=== PATIENT | female | born 1990 | race Caucasian/White ===

== ENCOUNTER 2016-08-07 07:11 | Day surgery (SDC) | payer BC ==
[~2016-08-07 07:11] MED LIST: Lactated Ringers 1,000 ML IV SCH; Sodium Chloride 0.9% 10 ML Syringe FLUSH PRN; Sodium Chloride 0.9% 2.5 ML Syringe FLUSH PRN
--- NOTE | 2016-08-07 07:50 | PCM.PREANE ---
Preanesthetic Assessment - Anesthesia/Transfusion/Family Hx Anesthesia History: Prior Anesthesia Without Reaction Family History of Anesthesia Reaction: No Transfusion History: No Prior Transfusion(s) Intubation History: Unknown - Review of Systems General: No Symptoms Pulmonary: No Symptoms Cardiovascular: Other (hypertension on medication) Gastrointestinal: Other (GERD) Neurological: No Symptoms (past hx concussion and facial trauma; nothing recent) , Other (bilateral carpal tunnel pain) Other: Reports: Sinus Problem - Physical Assessment O2 Sat by Pulse Oximetry: 98 Respiratory Rate: 16 Vital Signs: Last Vital Signs Temp 97.4 F 08/07/16 07:29 Pulse 74 08/07/16 07:29 Resp 16 08/07/16 07:29 BP 132/80 08/07/16 07:29 Pulse Ox 98 08/07/16 07:29 Height: 5 ft 3 in Weight: 193 lb ASA Class: 2 Mental Status: Alert & Oriented x3 Airway Class: Mallampati = 1 Dentition: Reports: Normal Dentition Thyro-Mental Finger Breadths: 3 Mouth Opening Finger Breadths: 3 ROM/Head Extension: Full Lungs: Clear to auscultation, Normal respiratory effort Cardiovascular: Regular Rate, Regular Rhythm - Lab Values: Laboratory Last Values Urine HCG, Qual NEGATIVE (NEGATIVE) 08/07/16 07:30 - Allergies Allergies/Adverse Reactions: Allergies Allergy/AdvReac Type Severity Reaction Status Date / Time No Known Allergies Allergy Verified 08/02/16 14:48 - Blood Blood Available: No Product(s) Available: None - Anesthesia Plan Pre-Op Medication Ordered: None - Acknowledgements Anesthesia Type Planned: General Anesthesia (OET) Pt an Appropriate Candidate for the Planned Anesthesia: Yes Alternatives and Risks of Anesthesia Discussed w Pt/Guardian: Yes Pt/Guardian Understands and Agrees with Anesthesia Plan: Yes Additional Comments: Carpal tunnel repair will be done first by Dr. Adam, then nasal surgery. PreAnesthesia Questionnaire - Past Health History Medical/Surgical History: Denies Medical/Surgical History HEENT History: Reports: Allergic rhinitis Other HEENT History: wears glasses/contacts..... hx of fx nose Cardiovascular History: Reports: Hypertension Respiratory History: Reports: None Gastrointestinal History: Reports: GERD Genitourinary History: Reports: None DIRECTOR OF MECHANICAL ENGINEERING History: Reports: None Musculoskeletal History: Reports: Arthritis, Fracture Other Musculoskeletal History: hx of non-union fx of scaphoid bone, hx of fx right foot,hx of fx left hand, hx of fx nose Neurological History: Reports: Concussion, Other (see below) Other Neuro History: hx of motion sickness Psychiatric History: Reports: None Endocrine/Metabolic History: Reports: Obesity/BMI 30+ Hematologic History: Reports: None Immunologic History: Reports: None Oncologic (Cancer) History: Reports: None Dermatologic History: Reports: None - Past Surgical History Head Surgeries/Procedures: Reports: None HEENT Surgical History: Reports: Oral surgery, Tonsillectomy Cardiovascular Surgical History: Reports: None Respiratory Surgical History: Reports: None GI Surgical History: Reports: None Female Surgical History: Reports: Cervical cryotherapy, D&C Endocrine Surgical History: Reports: None Neurological Surgical History: Reports: None Musculoskeletal Surgical History: Reports: None Dermatological Surgical History: Reports: None - SUBSTANCE USE Smoking Status *Q: Former Smoker Tobacco Use Within Last Twelve Months: Cigarettes Second Hand Smoke Exposure: Yes Days Per Week of Alcohol Use: 2 Number of Drinks Per Day: 6 Total Drinks Per Week: 12 Recreational Drug Use History: No - HOME MEDS Home Medications: Home Meds Hydrochlorothiazide 12.5 mg PO ASDIRECTED 08/02/16 [History] Loratadine [Claritin] 10 mg PO BEDTIME 08/02/16 [History] Montelukast Sodium 10 mg PO DAILY 08/02/16 [History] Norgestimate-Ethinyl Estradiol [Ortho Tri-Cyclen 28 Tablet] 1 tab PO DAILY 08/02 [History] Omeprazole 40 mg PO DAILY 08/02/16 [History] - CURRENT (IN HOUSE) MEDS Current Meds: Current Medications Lactated Ringer's (Ringers, Lactated) 1,000 mls @ 125 mls/hr IV ASDIRECTED [facility] Last Admin: 08/07/16 07:30 Dose: 125 mls/hr Cefazolin Sodium/Dextrose 2 gm (/ Premix) 50 mls @ 100 mls/hr IV ONETIME ONE Stop: 08/07/16 08:29 Sodium Chloride (Saline Flush) 10 ml FLUSH ASDIRECTED PRN PRN Reason: Keep Vein Open Sodium Chloride (Saline Flush) 2.5 ml FLUSH ASDIRECTED PRN PRN Reason: Keep Vein Open Preanesthetic Assessment - ANESTHESIA/TRANSFUSION/FAMILY HX Family History of Anesthesia Reaction: No - PHYSICAL ASSESSMENT O2 Sat by Pulse Oximetry: 98 RR: 16 Vital Signs: Last Vital Signs Temp 97.4 F 08/07/16 07:29 Pulse 74 08/07/16 07:29 Resp 16 08/07/16 07:29 BP 132/80 08/07/16 07:29 Pulse Ox 98 08/07/16 07:29 Height: 5 ft 3 in Weight: 193 lb - LAB Values: Laboratory Last Values Urine HCG, Qual NEGATIVE (NEGATIVE) 08/07/16 07:30 - ALLERGIES Allergies/Adverse Reactions: Allergies Allergy/AdvReac Type Severity Reaction Status Date / Time No Known Allergies Allergy Verified 08/02/16 14:48
[2016-08-07] MEDS ORDERED: Bupivacaine 0.25% 10 ML SDV ONE (07:52)
[2016-08-07] MEDS ORDERED: Aloe Vera/Sodium Chloride Gel 14.1 GM Tube ONE (07:52)
[2016-08-07] MEDS ORDERED: Ondansetron 4 MG/2 ML SDV ONE (07:53)
[2016-08-07] MEDS ORDERED: Lidocaine 2% 5 ML SDV ONE ×2 (07:53)
[2016-08-07] MEDS ORDERED: Lidocaine 1% 20 ML MDV ONE (07:53)
[2016-08-07] MEDS ORDERED: Midazolam 1 MG/ML 2 ML SDV ONE (07:53)
[2016-08-07] MEDS ORDERED: Propofol 200 MG/20 ML SDV ONE ×3 (07:53→10:31)
[2016-08-07] MEDS ORDERED: Dexamethasone 4 MG/ML 5 ML MDV ONE (07:53)
[2016-08-07] MEDS ORDERED: EPINEPHrine 1:1000 1 MG/ML SDV ONE (07:53)
[2016-08-07] MEDS ORDERED: Rocuronium 10 MG/ML 10 ML Syringe ONE (07:53)
[2016-08-07] MEDS ORDERED: fentaNYL 250 MCG/5 ML SDV ONE (07:53)
[2016-08-07] MEDS ORDERED: Lidocaine 2% with EPINEPHrine 1:100,000 20 ML MDV ONE (07:54)
[2016-08-07] MEDS ORDERED: Thrombin (Bovine) 5,000 Unit Kit ONE (07:54)
[2016-08-07] MEDS ORDERED: Oxymetazoline 0.05% Nasal Spray 15 ML Bottle ONE (07:55)
[2016-08-07] MEDS ORDERED: ceFAZolin 2 GM in Premix Bag 1 BAG IV ONE (08:00)
[2016-08-07] MEDS ORDERED: Remifentanil 1 MG Vial ONE (08:06)
--- NOTE | 2016-08-07 08:42 | PCM.HPR ---
H & P Addendum review - H & P Addendum Review Date of Original H & P: 07/26/16 Date Reviewed: 08/07/16 Time Reviewed: 08:30 Patient was examined: No Changes
[2016-08-07] MEDS ORDERED: Succinylcholine/Normal Saline 200 MG/10 ML Syringe ONE (08:54)
--- NOTE | 2016-08-07 09:25 | PCM.OPNOTE ---
- General Post-Op/Procedure Note Date of Surgery/Procedure: 08/07/16 Operative Procedure(s): L CTR Post-Op Diagnosis: L CTS Anesthesia Technique: General ET tube Primary Surgeon: Analilia Adam Seafood Specialist: Vera Garland EBL in mLs: 5 Condition: Good Free Text/Narrative:: tt=5 min #[id number] At completion of case, patient was left intubated and care was turned over to Dr. Coulter for completion of her portion of the surgery.
[2016-08-07] MEDS ORDERED: Mineral Oil/Petrolatum Ophth Oint 3.5 GM Tube ONE (09:46)
[2016-08-07] MEDS ORDERED: Promethazine 12.5 MG Supp RECTAL PRN (12:48)
[2016-08-07] MEDS ORDERED: fentaNYL 100 MCG/2 ML SDV IVPUSH PRN (12:48)
[2016-08-07] MEDS ORDERED: HYDROmorphone 2 MG/ML Syringe IVPUSH PRN (12:48)
[2016-08-07] MEDS ORDERED: Acetaminophen/HYDROcodone 325-5 MG Tab PO PRN (13:05)
[2016-08-07] MEDS ORDERED: Acetaminophen 500 MG Tab PO PRN (13:06)
--- NOTE | 2016-08-07 13:19 | PCM.POSTAN ---
POST ANESTHESIA ASSESSMENT - MENTAL STATUS Mental Status: alert, oriented - RESPIRATORY Respiratory Status: respiratory rate WNL, airway patent, O2 saturation stable - CARDIOVASCULAR CV Status: pulse rate WNL, blood pressure stable - GASTROINTESTINAL GI Status: no symptoms - POST OP HYDRATION Hydration Status: adequate & stable
--- NOTE | 2016-08-07 14:12 | PCM.OPNOTE ---
- General Post-Op/Procedure Note Date of Surgery/Procedure: 08/07/16 Condition: Good Free Text/Narrative:: Diagnosis: Nasal obstruction, allergic rhinitis, deviated nasal septum, bilateral inferior turbinate hypertrophy, Right maxillary sinusitis, right hypoplastic maxillary sinus, right ethmoidal sinusitis Procedure: Coblation reduction of bilateral inferior turbinates [ CPT 04030]; nasal septoplasty [ 96464], Right endoscopic maxillary antrostomy [56408], right endoscopic anterior and posterior ethmoidectomy [50010] Surgeon: Juju Coulter MD Anesthesia: GA Anesthesiologist: Dr Avendano Date of procedure: 08/07/2016 Indications: Nasal obstruction, allergic rhinitis, deviated nasal septum, bilateral inferior turbinate hypertrophy, Right maxillary sinusitis, right hypoplastic maxillary sinus, right ethmoidal sinusitis. She was experiencing nasal obstruction along with facial heaviness and post nasal drip; she failed maximal medical therapy. A CT scan of the paranasal sinuses showed the above. Risks and benefits of the procedure were discussed with her; she was also counselled that due to allergic rhinitis, she will possibly have to continue using medications. Findings: Ulysses inferior turbinate hypertrophy. Nasal septal deviation - on the left anterior ; L caudal dislocation of nasal septum; on right posterior deviation; dislocation of nasal septal cartilage along the floor to the left. Right uncinate process lateralized to the orbital wall; hypoplastic right maxillary sinus with thick mucoid secretions; ethmoid sinuses were clear of any significant disease Operation Details: An informed consent was obtained. A time out was performed and the patient was brought back to the operating room. Gen. anesthesia was administered with an endotracheal tube. The orthopedic team performed a Left carpal tunnel release , subsequent to which I performed a time out as above for my procedure. The operating part was prepped and draped in a standard fashion. Eyes were left exposed. A 0 degree rigid nasal endoscope was used to examine bilateral nasal cavities and photo documentation was obtained. The left inferior turbinate was addressed first. 1% lidocaine was injected into the inferior turbinate - 3 mls were used. The nasal cavity was packed with Afrin soaked pledget. After adequte period of decongestion the pledget was removed. A reflex 45 coblation wand with tip dipped in AYR Gel was used at setting of 6 :2 for Coblation and coagulation respectively. The point of entry was coagulated and wand was inserted till the third marking. Three johnson were created in the single channel. The inferior turbinate was visibly shrunk. Similar procedure was repeated on the right side - 3ml of lidocaine was used; there was visible reduction in size of turbinate subsequent to coblation. Bilateral nasal cavities were then packed with oxymetazoline 0.5% soaked cottonoid pledgets. After an appropriate period of decongestion the pledgets were removed. Nasal septum was infiltrated with 2% lidocaine 1: 100, 000 epinephrine in a standard fashion-a total of 4 mls was used. A left sided maxwell-transfixation incision was performed. A left sided mucoperichondrial flap was elevated-dissection was commenced with 2 mm osteotome and further carried out with combination of lacie and O[place]man elevators. Posteriorly the flap was continued as a muco periosteal flap. Sharp and careful dissection was performed to lift the flaps off the left sided spur along the floor. A posterior chondrotomy was performed. Right-sided mucoperiosteal flap was elevated. Floor of the septal cartilage was dissected off the maxillary crest elevating thin strip of mucoperichondrial flap inferiorly on the contralateral-right side. A lowe scissor was used and the perpendicular plate of the ethmoid was removed. The vomer was also removed. The thin inferior strip of cartilage was removed using a septal knife. Part of the maxillary crest was removed with a 4 mm osteotome and hammer. Subsequent to this the nasal septum was positioned towards the midline. There was a very small tear along the floor on the right side; flap was intact on the left side. The caudal end of septum was secured to the nasal spine with a 3.0 PDS suture, moving it over to the right, to correct the previous L sided deformity. A columellar pocket was created and the caudal end of septum was repositioned into the pocket and secured in place with 4.0 plain gut. Flap incision was sutured with 4-0 plain gut. Mattress sutures were also performed. The popAD navigation system was set up and the Tracker was fixed to the fore head as per protocol. A successful registration was obtained. The right middle turbinate axilla and the head of middle turbinate were infiltrated with 2% lidocaine and 1 in 100,000 epinephrine-a total of 1.5 ml was used. A cottonoid pledget soaked in 1: 1000 epinephrine each was placed in the middle meatus, draping over the middle turbinate axilla and one in the region between the middle turbinate and the septum. After appropriate period of decongestion the cottonoid pledgets were removed. The middle turbinate was gently medialized with freer elevator and the 0 rigid nasal endoscope was introduced into the middle meatus. The posterior free edge of the uncinate process was identified and medialized with a ball probe. A left sided pediatric backbiter was used to remove the uncinate process at the junction of the horizontal and vertical part. A straight shot tri-cut blade with navigation attached to it was then used to debride the vertical attachment of the uncinate process up to the attachment of Agger nasi cell. A ball probe was then used to identified the left maxillary sinus ostium - this was more posterior and seemed to be pushed inferiorly by the orbital wall. The horizontal part of the uncinate process was then further dissected away with a ball probe and then with a combination of microdebrider and cold steel dissection. The 30 rigid endoscope was used to examine the maxillary ostium - findings as above. The maxillary sinus was suctioned clear of the mucoid secretions and thoroughly irrigated with saline. A 0 degree nasal endoscope was used and next the natural ostium of the left bulla ethmoidalis was identified and down fractured with a curette. Further removal of the bulla was performed with a microdebrider blade and anterior ethmoid cells were removed. The mucosa of bulla and anterior ethmoid cells was healthy. The posterior ethmoids were entered by penetrating the ground lamella at the junction of horizontal and vertical part with a curette; further dissection was carried out with a microdebrider and partial posterior ethmoid cells were cleared sequentially. The middle meatus was then finally irrigated with the warm saline and inspected with rigid endoscope. No loose bone chips were identified. At all times the position of instruments was confirmed with [employer] navigation and a combination of straight, 90 and 70 degrees suctions and ostium seekers - all navigated were used as required at appropriate times to assist with identifying landmarks and dissection. Merojel was injected into the middle meatus. Bilateral Kunz splints were inserted and held in place with 2.0 Prolene suture. Drip pad was applied. This concluded the procedure and the patient was turned over to the anesthesiologist for recovery. Specimens: none IV fluids: 1900 ml Blood loss: 10 ml Blood products: none Disposition: PACU for recovery Follow up: In 1 week f or removal of splints.
[2016-08-07 16:18] VITALS: BP 138/78
--- NOTE | 2016-08-07 17:01 | OR ---
SURGEON: Analilia Adam MD DATE OF PROCEDURE: 08/07/2016 PREOPERATIVE DIAGNOSIS: Left carpal tunnel syndrome. POSTOPERATIVE DIAGNOSIS: Left carpal tunnel syndrome. PROCEDURE: Left carpal tunnel release, open. PRINTING PLATE SETTER: Vera Garland MD, PGY-2. ANESTHESIA: General. ESTIMATED BLOOD LOSS: 5 mL. TOURNIQUET TIME: 5 minutes. COMPLICATIONS: None. DVT PROPHYLAXIS: PAS boots to bilateral lower extremities. IMPLANTS USED: None. BRIEF HISTORY: Gogo is a 26-year-old female, who has had complaints of bilateral carpal tunnel syndrome. EMG/nerve conduction studies did confirm evidence of bilateral median nerve compression. 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 She will be referred to [facility] for this. She is scheduled to undergo sinus surgery today with Dr. Coulter as well. It was recommended that she undergo carpal tunnel release on the left. This would give the incision a chance to be well healed before she goes to [place] for definitive treatment of the scaphoid nonunion. The risks and goals of the procedure were discussed with the patient and documented preoperatively. She agreed to proceed. DESCRIPTION OF PROCEDURE: The patient was properly identified and brought to the operating room. The patient was transferred from the operating room cart and placed on the operating room table in the supine position. General anesthesia was administered. After adequate anesthesia was achieved, a well-padded tourniquet was applied to the left upper arm. The upper extremity was then prepped in standard fashion using ChloraPrep solution. It was then sterilely draped. A time-out was performed to ensure correct site and procedure. Preoperative antibiotics were given. The surgical site had been marked preoperatively. An Esmarch was used to exsanguinate the left upper extremity and the tourniquet was inflated to 200 millimeters of mercury. A fifteen blade scalpel used to make an incision over the volar aspect of the hand. The subcutaneous tissues and palmar fascia were incised down to the level of the transverse carpal ligament. Transverse carpal ligament was then incised. Care was taken to release the ligament distally to the level of fat and proximally into the forearm. At the completion, we had good decompression of the median nerve. No other abnormalities were identified. The wound was then copiously irrigated with saline solution. The tourniquet was deflated. Electrocautery was used to maintain hemostasis. The incision site was closed with 4-0 nylon. A mixture of 1% Lidocaine and 0.25% Marcaine were injected along the incision. Xeroform gauze was placed over the wound and a bulky dressing was applied. All needle and sponge counts were correct. Patient remained under anesthesia at completion of case and care was turned over to Dr. Coulter for her portion of the procedure. NIKOLE ANN /[id number] MTDD
== END 2016-08-07 15:45 | disposition home or self-care (01) ==
LOC: MW.SDS 07:11
PROVIDERS: ATTEND Otolaryngology
PROC: 0NSBXZZ Reposition Nasal Bone, External Approach (ICD-10-PCS; principal; 2016-08-07)
PROC: 09RM0KZ Replacement of Nasal Septum with Nonautologous Tissue Substitute, Open Approach (ICD-10-PCS; 2016-08-07)
PROC: 099Q4ZZ Drainage of Right Maxillary Sinus, Percutaneous Endoscopic Approach (ICD-10-PCS; 2016-08-07)
PROC: 01N50ZZ Release Median Nerve, Open Approach (ICD-10-PCS; 2016-08-07)
DX: J34.3 Hypertrophy of nasal turbinates (principal); J34.2 Deviated nasal septum; J32.0 Chronic maxillary sinusitis; J32.2 Chronic ethmoidal sinusitis; J34.89 Other specified disorders of nose and nasal sinuses; G56.02 Carpal tunnel syndrome, left upper limb; I10 Essential (primary) hypertension; K21.9 Gastro-esophageal reflux disease without esophagitis; E66.9 Obesity, unspecified; M19.90 Unspecified osteoarthritis, unspecified site; Z87.891 Personal history of nicotine dependence; Z90.89 Acquired absence of other organs; Z98.890 Other specified postprocedural states; Z79.899 Other long term (current) drug therapy
CPT/HCPCS: 30520; 30802; 31255; 31256; 64721; 81025; A9270; J0171; J1100; J1170; J2250; J2405; J3010; J7120; 00160; J2704

== ENCOUNTER 2016-10-02 08:26 | Day surgery (SDC) | payer BC ==
[~2016-10-02 08:26] MED LIST changes: +Acetaminophen/HYDROcodone 325-5 MG Tab PO PRN; +Bupivacaine 0.25% 10 ML SDV ONE; +Lidocaine 1% 50 ML MDV ONE; +Midazolam 1 MG/ML 2 ML SDV ONE; +Ondansetron 4 MG/2 ML SDV ONE; +Propofol 200 MG/20 ML SDV ONE; -Sodium Chloride 0.9% 10 ML Syringe FLUSH PRN; -Sodium Chloride 0.9% 2.5 ML Syringe FLUSH PRN; +ceFAZolin 2 GM in Premix Bag 1 BAG IV SCH; +fentaNYL 100 MCG/2 ML SDV ONE
--- NOTE | 2016-10-02 08:59 | PCM.OPNOTE ---
- General Post-Op/Procedure Note Date of Surgery/Procedure: 10/02/16 Operative Procedure(s): L CTR Post-Op Diagnosis: L CTR Anesthesia Technique: Local, Moderate sedation Primary Surgeon: Analilia Adam [place] Layer: Laura Devine in mLs: 5 Condition: Good Free Text/Narrative:: tt=2 min #[id number]
--- NOTE | 2016-10-02 09:02 | PCM.PREANE ---
Preanesthetic Assessment - Anesthesia/Transfusion/Family Hx Anesthesia History: Prior Anesthesia Without Reaction Family History of Anesthesia Reaction: No Transfusion History: No Prior Transfusion(s) Intubation History: Unknown - Review of Systems General: No Symptoms Pulmonary: No Symptoms Cardiovascular: No Symptoms Gastrointestinal: No symptoms Neurological: No Symptoms Other: Reports: None - Physical Assessment NPO Status Date: 10/01/16 Height: 1.6 m Weight: 86.183 kg ASA Class: 2 Mental Status: Alert & Oriented x3 Airway Class: Mallampati = 1 Dentition: Reports: Normal Dentition Lungs: Clear to auscultation, Normal respiratory effort Cardiovascular: Regular Rate, Regular Rhythm - Allergies Allergies/Adverse Reactions: Allergies Allergy/AdvReac Type Severity Reaction Status Date / Time No Known Allergies Allergy Verified 08/02/16 14:48 - Anesthesia Plan Pre-Op Medication Ordered: None - Acknowledgements Anesthesia Type Planned: MAC Pt an Appropriate Candidate for the Planned Anesthesia: Yes Alternatives and Risks of Anesthesia Discussed w Pt/Guardian: Yes Pt/Guardian Understands and Agrees with Anesthesia Plan: Yes PreAnesthesia Questionnaire - Past Health History Medical/Surgical History: Denies Medical/Surgical History HEENT History: Reports: Allergic Rhinitis Other HEENT History: wears glasses/contacts..... hx of fx nose Cardiovascular History: Reports: Hypertension Respiratory History: Reports: None Gastrointestinal History: Reports: GERD Genitourinary History: Reports: None NURSING FACULTY History: Reports: None Musculoskeletal History: Reports: Arthritis, Fracture Other Musculoskeletal History: hx of non-union fx of scaphoid bone, hx of fx right foot,hx of fx left hand, hx of fx nose Neurological History: Reports: Concussion, Other (See Below) Other Neuro History: hx of motion sickness Psychiatric History: Reports: None Endocrine/Metabolic History: Reports: Obesity/BMI 30+ Hematologic History: Reports: None Immunologic History: Reports: None Oncologic (Cancer) History: Reports: None Dermatologic History: Reports: None - Past Surgical History Head Surgeries/Procedures: Reports: None HEENT Surgical History: Reports: Naso-Sinus Surgery, Oral Surgery, Tonsillectomy Cardiovascular Surgical History: Reports: None Respiratory Surgical History: Reports: None GI Surgical History: Reports: None Female Surgical History: Reports: Cervical Cryotherapy, D&C Endocrine Surgical History: Reports: None Neurological Surgical History: Reports: None Musculoskeletal Surgical History: Reports: Carpal Tunnel Other Musculoskeletal Surgeries/Procedures:: hx left carpal tunnel release 3 weeks ago Dermatological Surgical History: Reports: None - SUBSTANCE USE Smoking Status *Q: Former Smoker Tobacco Use Within Last Twelve Months: Cigarettes Second Hand Smoke Exposure: Yes Days Per Week of Alcohol Use: 2 Number of Drinks Per Day: 6 Total Drinks Per Week: 12 Recreational Drug Use History: No - HOME MEDS Home Medications: Home Meds Hydrochlorothiazide 12.5 mg PO ASDIRECTED 08/02/16 [History] Montelukast Sodium 10 mg PO DAILY 08/02/16 [History] Norgestimate-Ethinyl Estradiol [Ortho Tri-Cyclen 28 Tablet] 1 tab PO DAILY 08/02 [History] Omeprazole 40 mg PO DAILY 08/02/16 [History] PARoxetine HCl [Paxil] 20 mg PO DAILY 09/27/16 [History] - CURRENT (IN HOUSE) MEDS Current Meds: Current Medications Hydrocodone Bitart/Acetaminophen ([place] 325-5 Mg) 1 - 2 tab PO Q4H PRN PRN Reason: Pain Lactated Ringer's (Ringers, Lactated) 1,000 mls @ 100 mls/hr IV ASDIRECTED [facility] Last Admin: 10/02/16 08:54 Dose: 100 mls/hr Cefazolin Sodium/Dextrose 2 gm (/ Premix) 50 mls @ 100 mls/hr IV ONCALL [facility] Discontinued Medications Bupivacaine HCl (Sensorcaine-Mpf 0.25%) Confirm Administered Dose 10 ml .ROUTE .STK-MED ONE Stop: 10/02/16 07:45 Fentanyl (Sublimaze) Confirm Administered Dose 100 mcg .ROUTE .STK-MED ONE Stop: 10/02/16 08:19 Lidocaine HCl (Xylocaine 1%) Confirm Administered Dose 50 ml .ROUTE .STK-MED ONE Stop: 10/02/16 07:46 Midazolam HCl (Versed 1 Mg/Ml) Confirm Administered Dose 2 mg .ROUTE .STK-MED ONE Stop: 10/02/16 08:19 Ondansetron HCl (Zofran) Confirm Administered Dose 4 mg .ROUTE .STK-MED ONE Stop: 10/02/16 08:19 Propofol (Diprivan 20 Ml) Confirm Administered Dose 200 mg .ROUTE .STK-MED ONE Stop: 10/02/16 08:19
--- NOTE | 2016-10-02 10:48 | PCM48HPAN ---
Post Anesthesia Note - EVALUATION WITHIN 48HRS OF ANESTHETIC Vital Signs in Normal Range: Yes Patient Participated in Evaluation: Yes Respiratory Function Stable: Yes Airway Patent: Yes Cardiovascular Function Stable: Yes Hydration Status Stable: Yes Pain Control Satisfactory: Yes Nausea and Vomiting Control Satisfactory: Yes Mental Status Recovered: Yes
[2016-10-02 11:04] VITALS: BP 119/71
--- NOTE | 2016-10-02 13:22 | OR ---
SURGEON: Analilia Adam MD DATE OF PROCEDURE: 10/02/2016 PREOPERATIVE DIAGNOSIS: Left carpal tunnel syndrome. POSTOPERATIVE DIAGNOSIS: Left carpal tunnel syndrome. PROCEDURE: Left carpal tunnel release, open. SOUND RECORDING TECHNICIAN: Kayleigh Lopez RN ANESTHESIA: Local with sedation. ESTIMATED BLOOD LOSS: 5 mL. TOURNIQUET TIME: 2 minutes. COMPLICATIONS: None. DVT PROPHYLAXIS: Not indicated. IMPLANTS USED: None. 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 She has previously undergone a right carpal tunnel release, and has done well. Due to her lack of response to conservative treatment, I did recommend she undergo a left carpal tunnel release. The risks and goals of the procedure were discussed with the patient and were documented preoperatively. She agreed to proceed. DESCRIPTION OF PROCEDURE: The patient was properly identified and brought to the operating room. The patient was transferred from the operating room cart and placed on the operating room table in the supine position. Sedation was administered. After adequate sedation was achieved, a well-padded tourniquet was applied to the left forearm. The upper extremity was then prepped in standard fashion using ChloraPrep solution. It was then sterilely draped. A time-out was performed to ensure correct site and procedure. Preoperative antibiotics were given. The surgical site had been marked preoperatively. A mixture of 1% Lidocaine and 0.25% Marcaine were injected along the area of anticipated incision. An Esmarch was used to exsanguinate the left upper extremity and the tourniquet was inflated to 200 millimeters of mercury. A fifteen blade scalpel used to make an incision over the volar aspect of the hand. The subcutaneous tissues and palmar fascia were incised down to the level of the transverse carpal ligament. Transverse carpal ligament was then incised. Care was taken to release the ligament distally to the level of fat and proximally into the forearm. At the completion, we had good decompression of the median nerve. No other abnormalities were identified. The wound was then copiously irrigated with saline solution. The tourniquet was deflated. Electrocautery was used to maintain hemostasis. The incision site was closed with 4-0 nylon. Xeroform gauze was placed over the wound and a bulky dressing was applied. The patient was awakened from the sedation and transferred back to the operating room cart. The patient was brought to the recovery room in stable condition. All needle and sponge counts were correct. NIKOLE / MARISSA /[id number]
--- NOTE | 2016-11-20 18:56 | OR ---
SURGEON: Analilia Adam MD DATE OF PROCEDURE: 10/02/2016 ADDENDUM: Please note that the original operative report from 10/02/2016 was dictated in error. PREOPERATIVE DIAGNOSIS: Right carpal tunnel syndrome. POSTOPERATIVE DIAGNOSIS: Right carpal tunnel syndrome. PROCEDURE: Right carpal tunnel release, open. NIKOLE / MARISSA /[id number] MTDD
== END 2016-10-02 10:57 | disposition home or self-care (01) ==
LOC: MW.SDS 08:26
PROVIDERS: ATTEND Orthopaedic Surgery
DX: G56.02 Carpal tunnel syndrome, left upper limb (principal); Z98.890 Other specified postprocedural states; Z79.899 Other long term (current) drug therapy
CPT/HCPCS: 64721; 81025; J2250; J2405; J3010; J7120; 01810; J2704

== ENCOUNTER 2018-11-23 09:58 | Emergency (ER) | payer BC ==
[2018-11-23] MEDS ORDERED: Sodium Chloride 0.9% 10 ML Syringe FLUSH PRN (10:18)
[2018-11-23] MEDS ORDERED: Sodium Chloride 0.9% 2.5 ML Syringe FLUSH PRN (10:18)
--- NOTE | 2018-11-23 10:18 | EDM.PDOC ---
ED HPI GENERAL MEDICAL PROBLEM - General Chief Complaint: Neuro Symptoms/Deficits Stated Complaint: STROKE SYMPTOMS Time Seen by Provider: 11/23/18 10:04 Source of Information: Reports: Patient History Limitations: Reports: No Limitations - History of Present Illness INITIAL COMMENTS - FREE TEXT/NARRATIVE: History of present illness: []9:00 this morning patient had an episode where she had tingling in her left small finger and thumb radiating up her arm in a brief episode where she couldn' t find her words. She denies any other symptoms and arrived to the ER with symptoms resolved. She is at 12 weeks and has had a similar episode in the past. She was evaluated by Dr. Barraza and shown not to have a stroke. Review of systems: As per history of present illness and below otherwise all systems reviewed and negative. Past medical history: As per history of present illness and as reviewed below otherwise noncontributory. Surgical history: As per history of present illness and as reviewed below otherwise noncontributory. Social history: No reported history of drug or alcohol abuse. Family history: As per history of present illness and as reviewed below otherwise noncontributory. Physical exam: General: Well developed, well nourished in NAD HEENT: Atraumatic, normocephalic, pupils reactive, negative for conjunctival pallor or scleral icterus, mucous membranes moist, throat clear, neck supple, nontender, trachea midline. Lungs: Clear to auscultation, breath sounds equal bilaterally, chest nontender. Heart: S1S2, regular, negative for clicks, rubs, or JVD. Abdomen: heart tones 159, NABS, Soft, nondistended, nontender. Negative for masses or hepatosplenomegaly. Negative for costovertebral tenderness. Pelvis: Stable nontender. Genitourinary: Deferred. Rectal: Deferred. Extremities: Atraumatic, negative for cords or calf pain. Neurovascular unremarkable. Neuro: Awake, alert, oriented. Cranial nerves II through XII unremarkable. Cerebellum unremarkable. Motor and sensory unremarkable throughout. Exam nonfocal. Skin:warm and dry Diagnostics: CBC, chemistry, UA and TSH Therapeutics: IV hydration ED Course: Discussed with Dr. Barraza who agrees she can be seen as an outpatient given her symptoms have resolved and follow her up as an outpatient in clinic Impression: Hand tingling with headache Prescriptions: None Plan: Follow-up with Dr. Barraza Definitive disposition and diagnosis as appropriate pending reevaluation and review of above. - Related Data Allergies Allergy/AdvReac Type Severity Reaction Status Date / Time No Known Allergies Allergy Verified 11/23/18 11:32 Home Meds: Home Meds Montelukast Sodium 10 mg PO DAILY 08/02/16 [History] Omeprazole 40 mg PO DAILY 08/02/16 [History] Aspirin [Ecotrin EC] 81 mg PO DAILY 11/23/18 [History] Pnv No.95/Ferrous Fum/Folic AC [ Caplet] 1 each PO DAILY 11/23/18 [ History] Past Medical History - Past Health History Medical/Surgical History: Denies Medical/Surgical History HEENT History: Reports: Allergic Rhinitis Other HEENT History: wears glasses/contacts..... hx of fx nose Cardiovascular History: Reports: Hypertension Respiratory History: Reports: None Gastrointestinal History: Reports: GERD Genitourinary History: Reports: None NURSE SCHOOL History: Reports: None Musculoskeletal History: Reports: Arthritis, Fracture Other Musculoskeletal History: hx of non-union fx of scaphoid bone, hx of fx right foot,hx of fx left hand, hx of fx nose Neurological History: Reports: Concussion, Other (See Below) Other Neuro History: hx of motion sickness Psychiatric History: Reports: None Endocrine/Metabolic History: Reports: Obesity/BMI 30+ Hematologic History: Reports: None Immunologic History: Reports: None Oncologic (Cancer) History: Reports: None Dermatologic History: Reports: None - Past Surgical History Head Surgeries/Procedures: Reports: None HEENT Surgical History: Reports: Naso-Sinus Surgery, Oral Surgery, Tonsillectomy Cardiovascular Surgical History: Reports: None Respiratory Surgical History: Reports: None GI Surgical History: Reports: None Female Surgical History: Reports: Cervical Cryotherapy, D&C Endocrine Surgical History: Reports: None Neurological Surgical History: Reports: None Musculoskeletal Surgical History: Reports: Carpal Tunnel Other Musculoskeletal Surgeries/Procedures:: hx left carpal tunnel release 3 weeks ago Dermatological Surgical History: Reports: None Social & Family History - Family History Family Medical History: Noncontributory - Caffeine Use Caffeine Use: Reports: Coffee ED ROS GENERAL - Review of Systems Review Of Systems: See Below ED EXAM, NEURO - Physical Exam Exam: See Below () Course - Vital Signs Last Recorded V/S: Last Vital Signs Temp 97.5 F 11/23/18 09:58 Pulse 66 11/23/18 12:36 Resp 18 11/23/18 12:36 BP 129/71 11/23/18 12:36 Pulse Ox 98 11/23/18 12:36 - Orders/Labs/Meds Orders: Active Orders 24 hr Category Date Time Status Saline Lock Insert [OM.PC] Stat Oth 11/23/18 10:18 Ordered Labs: Laboratory Tests 11/23/18 11/23/18 11/23/18 Range/Units 10:09 10:09 11:54 WBC 9.78 (4.0-11.0) K/uL RBC 4.58 (4.30-5.90) M/uL Hgb 14.2 (12.0-16.0) g/dL Hct 42.3 (36.0-46.0) % MCV 92.4 (80.0-98.0) fL MCH 31.0 (27.0-32.0) pg MCHC 33.6 (31.0-37.0) g/dL RDW Std Deviation 44.4 (28.0-62.0) fl RDW Coeff of Tyler 13 (11.0-15.0) % Plt Count 250 (150-400) K/uL MPV 9.40 (7.40-12.00) fL Neut % (Auto) 56.2 (48.0-80.0) % Lymph % (Auto) 33.4 (16.0-40.0) % [place]yler % (Auto) 8.5 (0.0-15.0) % Eos % (Auto) 1.7 (0.0-7.0) % Baso % (Auto) 0.2 (0.0-1.5) % Neut # (Auto) 5.5 (1.4-5.7) K/uL Lymph # (Auto) 3.3 H (0.6-2.4) K/uL Schuyler # (Auto) 0.8 (0.0-0.8) K/uL Eos # (Auto) 0.2 (0.0-0.7) K/uL Baso # (Auto) 0.0 (0.0-0.1) K/uL Nucleated RBC % 0.0 /100WBC Nucleated RBCs # 0 K/uL Sodium 139 (136-145) mmol/L Potassium 3.5 (3.5-5.1) mmol/L Chloride 106 (98-107) mmol/L Carbon Dioxide 21.8 (21.0-32.0) mmol/L BUN 10 (7.0-18.0) mg/dL Creatinine 0.7 (0.6-1.0) mg/dL Est Cr Clr Drug Dosing TNP Estimated GFR (MDRD) > 60.0 ml/min Glucose 103 (74-106) mg/dL Calcium 9.1 (8.5-10.1) mg/dL Total Bilirubin 0.3 (0.2-1.0) mg/dL AST 15 (15-37) IU/L ALT 19 (14-63) IU/L Alkaline Phosphatase 73 (46-116) U/L Total Protein 7.2 (6.4-8.2) g/dL Albumin 3.2 L (3.4-5.0) g/dL Globulin 4.0 (2.6-4.0) g/dL Albumin/Globulin Ratio 0.8 L (0.9-1.6) TSH 3rd Generation 2.83 (0.36-3.74) uIU/mL Urine Color YELLOW Urine Appearance CLEAR Urine pH 7.0 (5.0-8.0) Ur Specific [place] 1.015 (1.001-1.035) Urine Protein NEGATIVE (NEGATIVE) mg/dL Urine Glucose (UA) NEGATIVE (NEGATIVE) mg/dL Urine Ketones NEGATIVE (NEGATIVE) mg/dL Urine Occult Blood NEGATIVE (NEGATIVE) Urine Nitrite NEGATIVE (NEGATIVE) Urine Bilirubin NEGATIVE (NEGATIVE) Urine Urobilinogen 0.2 (<2.0) EU/dL Ur Leukocyte Esterase NEGATIVE (NEGATIVE) Urine RBC 0-2 (0-2/HPF) Urine WBC 0-2 (0-5/HPF) Ur Epithelial Cells FEW (NONE-FEW) Urine Bacteria FEW (NEGATIVE) Meds: Medications Discontinued Medications Generic Name Dose Route Start Last Admin Trade Name Freq PRN Reason Stop Dose Admin Sodium Chloride 10 ml 11/23/18 10:18 11/23/18 10:26 Saline Flush FLUSH 10 ml ASDIRECTED PRN Administration Keep Vein Open Sodium Chloride 2.5 ml 11/23/18 10:18 11/23/18 10:26 Saline Flush FLUSH 2.5 ml ASDIRECTED PRN Administration Keep Vein Open Departure - Departure Time of Disposition: 12:26 Disposition: Home, Self-Care 01 Condition: Good Clinical Impression: Numbness and tingling of right upper extremity - Discharge Information *PRESCRIPTION DRUG MONITORING PROGRAM REVIEWED*: No *COPY OF PRESCRIPTION DRUG MONITORING REPORT IN PATIENT SHIREEN: No Instructions: Burner or Stinger Nerve Injury Referrals: PCP,None [Primary Care Provider] - Forms: ED Department Discharge Additional Instructions: The following information is given to patients seen in the emergency department who are being discharged to home. This information is to outline your options for follow-up care. We provide all patients seen in our emergency department with a follow-up referral. The need for follow-up, as well as the timing and circumstances, are variable depending upon the specifics of your emergency department visit. If you don't have a primary care physician on staff, we will provide you with a referral. We always advise you to contact your personal physician following an emergency department visit to inform them of the circumstance of the visit and for follow-up with them and/or the need for any referrals to a consulting specialist. The emergency department will also refer you to a specialist when appropriate. This referral assures that you have the opportunity for follow-up care with a specialist. All of these measure are taken in an effort to provide you with optimal care, which includes your follow-up. Under all circumstances we always encourage you to contact your private physician who remains a resource for coordinating your care. When calling for follow-up care, please make the office aware that this follow-up is from your recent emergency room visit. If for any reason you are refused follow-up, please contact the [facility] Emergency Department at and asked to speak to the emergency department charge nurse. [facility] - Neurology Professional Building [address] [place] [address], [address] [place] [address] [facility] - [facility] [address], [place] [address] - My Orders Last 24 Hours: My Active Orders 11/23/18 10:18 Saline Lock Insert [OM.PC] Stat - Assessment/Plan Last 24 Hours: My Active Orders 11/23/18 10:18 Saline Lock Insert [OM.PC] Stat
[2018-11-23 11:02] LABS: CHLORIDE,CL 106 mmol/L (98-107); SODIUM,NA 139 mmol/L (136-145)
[2018-11-23 12:37] VITALS: BP 129/71
== END 2018-11-23 12:38 | disposition home or self-care (01) ==
LOC: MW.ED 09:58
DX: O99.89 Other specified diseases and conditions complicating pregnancy, childbirth and the puerperium (principal); R20.2 Paresthesia of skin; R51 Headache; O10.911 Unspecified pre-existing hypertension complicating pregnancy, first trimester; O99.611 Diseases of the digestive system complicating pregnancy, first trimester; K21.9 Gastro-esophageal reflux disease without esophagitis; Z79.899 Other long term (current) drug therapy; Z3A.12 12 weeks gestation of pregnancy
CPT/HCPCS: 36415; 80053; 81001; 84443; 85025; 99284

== ENCOUNTER 2019-05-14 13:21 | Inpatient (IN) | payer BC ==
[2019-05-14 14:26] LABS: BLOOD UREA NITROGEN,BUN 8 mg/dL (7.0-18.0); CARBON DIOXIDE,CO2 23.6 mmol/L (21.0-32.0); CHLORIDE,CL 104 mmol/L (98-107); GLUCOSE RANDOM 83 mg/dL (74-106); POTASSIUM,K 3.7 mmol/L (3.5-5.1); SODIUM,NA 137 mmol/L (136-145)
[2019-05-14] MEDS ORDERED: Labetalol 100 MG/20 ML MDV IVPUSH ONE (15:16)
[2019-05-14] MEDS ORDERED: Sodium Chloride 0.9% 2.5 ML Syringe FLUSH PRN (15:18)
[2019-05-14] MEDS ORDERED: Sodium Chloride 0.9% 10 ML SDV IV PRN (15:18)
[2019-05-14] MEDS ORDERED: ceFAZolin 2 GM in Premix Bag 1 BAG IV ONE (15:18)
[2019-05-14] MEDS ORDERED: Citric Acid/Sodium Citrate Solution 30 ML Cup PO ONE (15:18)
[2019-05-14] MEDS ORDERED: Sodium Chloride 0.9% 10 ML Syringe FLUSH PRN (15:18)
[2019-05-14] MEDS ORDERED: Calcium Gluconate 10% 1 GM/10 ML SDV IV PRN (15:24)
[2019-05-14] MEDS ORDERED: Magnesium Sulfate/Water 4 GM in Premix Bag 1 BAG IV ONE (15:24)
[2019-05-14] MEDS ORDERED: Oxytocin/0.9 % Sodium Chloride 30 UNIT/500 ML BAG IV SCH (15:30)
[2019-05-14] MEDS ORDERED: Lactated Ringers 1,000 ML IV SCH ×2 (15:30→20:15)
[2019-05-14] MEDS: Magnesium Sulfate/Water 20 GM/500 ML BAG IV SCH (16:50)
[2019-05-14] MEDS ORDERED: ePHEDrine 50 MG/ML SDV ONE ×2 (17:39→19:24)
[2019-05-14] MEDS ORDERED: Propofol 200 MG/20 ML SDV ONE (17:39)
[2019-05-14] MEDS ORDERED: Phenylephrine/Normal Saline 100 MCG/ML 10 ML Syringe ONE ×2 (17:39→18:23)
[2019-05-14] MEDS ORDERED: Ondansetron 4 MG/2 ML SDV ONE (17:39)
[2019-05-14] MEDS ORDERED: Sodium Chloride 0.9% 20 ML ONE (17:40)
--- NOTE | 2019-05-14 17:42 | PCM.PREANE ---
Preanesthetic Assessment - Anesthesia/Transfusion/Family Hx Anesthesia History: Prior Anesthesia Without Reaction Family History of Anesthesia Reaction: No Transfusion History: No Prior Transfusion(s) Intubation History: Unknown - Review of Systems General: No Symptoms Pulmonary: No Symptoms, Other Cardiovascular: Other (Hypertension on mag and labetolol) Gastrointestinal: No Symptoms Neurological: No Symptoms Other: Reports: Anxiety - Physical Assessment Height: 1.6 m Weight: 101.605 kg ASA Class: 3E Airway Class: Mallampati = 2 Dentition: Reports: Normal Dentition Thyro-Mental Finger Breadths: 3 Mouth Opening Finger Breadths: 3 ROM/Head Extension: Full Lungs: Clear to Auscultation Cardiovascular: Regular Rate - Lab Values: Laboratory Last Values WBC 12.02 K/uL (4.0-11.0) H 05/14/19 13:46 RBC 4.15 M/uL (4.30-5.90) L 05/14/19 13:46 Hgb 12.8 g/dL (12.0-16.0) 05/14/19 13:46 Hct 37.9 % (36.0-46.0) 05/14/19 13:46 MCV 91.3 fL (80.0-98.0) 05/14/19 13:46 MCH 30.8 pg (27.0-32.0) 05/14/19 13:46 MCHC 33.8 g/dL (31.0-37.0) 05/14/19 13:46 RDW Std Deviation 45.1 fl (28.0-62.0) 05/14/19 13:46 RDW Coeff of Tyler 14 % (11.0-15.0) 05/14/19 13:46 Plt Count 279 K/uL (150-400) 05/14/19 13:46 MPV 9.70 fL (7.40-12.00) 05/14/19 13:46 Neut % (Auto) 58.8 % (48.0-80.0) 05/14/19 13:46 Lymph % (Auto) 28.6 % (16.0-40.0) 05/14/19 13:46 [place] % (Auto) 11.1 % (0.0-15.0) 05/14/19 13:46 Eos % (Auto) 1.3 % (0.0-7.0) 05/14/19 13:46 Baso % (Auto) 0.2 % (0.0-1.5) 05/14/19 13:46 Neut # (Auto) 7.1 K/uL (1.4-5.7) H 05/14/19 13:46 Lymph # (Auto) 3.4 K/uL (0.6-2.4) H 05/14/19 13:46 [place] # (Auto) 1.3 K/uL (0.0-0.8) H 05/14/19 13:46 Eos # (Auto) 0.2 K/uL (0.0-0.7) 05/14/19 13:46 Baso # (Auto) 0.0 K/uL (0.0-0.1) 05/14/19 13:46 Nucleated RBC % 0.0 /100WBC 05/14/19 13:46 Nucleated RBCs # 0 K/uL 05/14/19 13:46 Sodium 137 mmol/L (136-145) 05/14/19 13:46 Potassium 3.7 mmol/L (3.5-5.1) 05/14/19 13:46 Chloride 104 mmol/L (98-107) 05/14/19 13:46 Carbon Dioxide 23.6 mmol/L (21.0-32.0) 05/14/19 13:46 BUN 8 mg/dL (7.0-18.0) 05/14/19 13:46 Creatinine 0.7 mg/dL (0.6-1.0) 05/14/19 13:46 Est Cr Clr Drug Dosing 96.29 mL/min 05/14/19 13:46 Estimated GFR (MDRD) > 60.0 ml/min 05/14/19 13:46 Glucose 83 mg/dL (74-106) 05/14/19 13:46 Uric Acid 4.3 mg/dL (2.6-7.2) 05/14/19 13:46 Calcium 8.7 mg/dL (8.5-10.1) 05/14/19 13:46 Total Bilirubin 0.2 mg/dL (0.2-1.0) 05/14/19 13:46 AST 19 IU/L (15-37) 05/14/19 13:46 ALT 19 IU/L (14-63) 05/14/19 13:46 Alkaline Phosphatase 121 U/L (46-116) H 05/14/19 13:46 Total Protein 6.4 g/dL (6.4-8.2) 05/14/19 13:46 Albumin 2.4 g/dL (3.4-5.0) L 05/14/19 13:46 Globulin 4.0 g/dL (2.6-4.0) 05/14/19 13:46 Albumin/Globulin Ratio 0.6 (0.9-1.6) L 05/14/19 13:46 Ur Random Creatinine 196.9 mg/dL 05/14/19 13:24 U Random Total Protein 55.9 mg/dL (<11.9) H 05/14/19 13:24 Protein/Creatinin Ratio 0.3 05/14/19 13:24 - Allergies Allergies/Adverse Reactions: Allergies Allergy/AdvReac Type Severity Reaction Status Date / Time No Known Allergies Allergy Verified 03/15/19 12:14 - Blood Blood Available: No - Acknowledgements Anesthesia Type Planned: Spinal Pt an Appropriate Candidate for the Planned Anesthesia: Yes Alternatives and Risks of Anesthesia Discussed w Pt/Guardian: Yes Pt/Guardian Understands and Agrees with Anesthesia Plan: Yes Additional Comments: NPO x 4hrs. History of Motion sickness. Anxiety. Discussed procedure, ? answered, wishes to proceed. Will treat nausea. PreAnesthesia Questionnaire - Past Health History Medical/Surgical History: Denies Medical/Surgical History HEENT History: Reports: Allergic Rhinitis Other HEENT History: wears glasses/contacts..... 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 Musculoskeletal History: Reports: Arthritis, Fracture Other Musculoskeletal History: hx of non-union fx of scaphoid bone, hx of fx right foot,hx of fx left hand, hx of fx nose Neurological History: Reports: Concussion, Other (See Below) Other Neuro History: hx of motion sickness Psychiatric History: Reports: None Endocrine/Metabolic History: Reports: Obesity/BMI 30+ Hematologic History: Reports: None Immunologic History: Reports: None Oncologic (Cancer) History: Reports: None Dermatologic History: Reports: None - Infectious Disease History Infectious Disease History: Reports: Chicken Pox - Past Surgical History Head Surgeries/Procedures: Reports: None HEENT Surgical History: Reports: Naso-Sinus Surgery, Oral Surgery, Tonsillectomy Cardiovascular Surgical History: Reports: None Respiratory Surgical History: Reports: None GI Surgical History: Reports: None Female Surgical History: Reports: Cervical Cryotherapy, D&C Endocrine Surgical History: Reports: None Neurological Surgical History: Reports: None Musculoskeletal Surgical History: Reports: Carpal Tunnel Other Musculoskeletal Surgeries/Procedures:: hx left carpal tunnel release 3 weeks ago Dermatological Surgical History: Reports: None - HOME MEDS Home Medications: Home Meds Montelukast Sodium 10 mg PO DAILY 08/02/16 [History] Omeprazole 40 mg PO DAILY 08/02/16 [History] Aspirin [Ecotrin EC] 81 mg PO DAILY 11/23/18 [History] Pnv No.95/Ferrous Fum/Folic AC [ Caplet] 1 each PO DAILY 11/23/18 [ History] - CURRENT (IN HOUSE) MEDS Current Meds: Current Medications Calcium Gluconate (Calcium Gluconate) 1 gm IV ASDIRECTED PRN PRN Reason: respiratory distress Oxytocin/Sodium Chloride (Oxytocin 30 Unit/500 Ml-Ns) 30 unit in 500 mls @ 250 mls/hr IV TITRATE CEZAR Lactated Ringer's (Ringers, Lactated) 1,000 mls @ 500 mls/hr IV BOLUS CEZAR Magnesium Sulfate (Magnesium Sulfate In Water Premix) 20 gm in 500 mls @ 50 mls /hr IV ASDIRECTED CEZAR Last Admin: 05/14/19 16:50 Dose: 2 gm/hr, 50 mls/hr Sodium Chloride (Saline Flush) 10 ml FLUSH ASDIRECTED PRN PRN Reason: Keep Vein Open Sodium Chloride (Saline Flush) 2.5 ml FLUSH ASDIRECTED PRN PRN Reason: Keep Vein Open Sodium Chloride (Normal Saline) 10 ml IV ASDIRECTED PRN PRN Reason: IV Use Discontinued Medications Citric Acid/Sodium Citrate (Bicitra Solution) 30 ml PO ONETIME ONE Stop: 05/14/19 15:19 Cefazolin Sodium/Dextrose 2 gm (/ Premix) 50 mls @ 100 mls/hr IV ONETIME ONE Stop: 05/14/19 15:47 Magnesium Sulfate 4 gm/ Premix 100 mls @ 300 mls/hr IV BOLUS ONE Stop: 05/14/19 15:43 Last Admin: 05/14/19 16:29 Dose: 300 mls/hr Labetalol HCl (Normodyne) 20 mg IVPUSH ONETIME ONE; Protocol Stop: 05/14/19 15:17 Last Admin: 05/14/19 16:06 Dose: 4 ml
[2019-05-14] MEDS ORDERED: ceFAZolin 1 GM Vial ONE (18:13)
[2019-05-14] MEDS ORDERED: Sodium Chloride 0.9% 40 ML ONE (18:13)
[2019-05-14] MEDS ORDERED: Morphine PF 10 MG/10 ML SDV ONE (18:16)
[2019-05-14] MEDS ORDERED: fentaNYL 100 MCG/2 ML SDV IVPUSH PRN (18:31)
[2019-05-14] MEDS ORDERED: Nalbuphine 10 MG/1 ML Vial IVPUSH PRN (18:31)
[2019-05-14] MEDS ORDERED: Acetaminophen/oxyCODONE 325-5 MG Tab PO PRN (18:31)
[2019-05-14] MEDS ORDERED: Oxytocin 10 Units/1 ML SDV ONE (18:51)
[2019-05-14] MEDS ORDERED: Oxytocin 10 Units/1 ML SDV IM PRN (20:07)
[2019-05-14] MEDS ORDERED: diphenhydrAMINE 50 MG/ML SDV IVPUSH PRN (20:07)
[2019-05-14] MEDS ORDERED: Lanolin 100% Cream 7 GM Tube TOP PRN (20:07)
[2019-05-14] MEDS ORDERED: Bisacodyl 10 MG Supp RECTAL PRN (20:07)
[2019-05-14] MEDS ORDERED: Tranexamic Acid 1,000 MG in Sodium Chloride 0.9% 100 ML IV PRN (20:07)
[2019-05-14] MEDS ORDERED: Ondansetron 4 MG/2 ML SDV IVPUSH PRN (20:07)
[2019-05-14] MEDS ORDERED: Misoprostol 200 MCG Tab RECTAL PRN (20:07)
--- NOTE | 2019-05-14 20:22 | PCM.POSTAN ---
POST ANESTHESIA ASSESSMENT - MENTAL STATUS Mental Status: Alert - VITAL SIGNS Vital Signs: Last Vital Signs Temp 36.6 C 05/14/19 19:51 Pulse 83 05/14/19 20:16 Resp 19 05/14/19 20:16 BP 144/63 H 05/14/19 20:16 Pulse Ox 97 05/14/19 20:16 - RESPIRATORY Respiratory Status: Respiratory Rate WNL - CARDIOVASCULAR CV Status: Pulse Rate WNL - GASTROINTESTINAL GI Status: No Symptoms - PAIN Pain Score: 0 (SAB regressing slowly) - POST OP HYDRATION Hydration Status: Adequate & Stable - OBSERVATIONS Free Text/Narrative:: Doing well. Continues on Mg. BP stable. Adequate for progression to Phase 2.
[2019-05-14] MEDS: Ketorolac 30 MG/ML SDV IVPUSH SCH (20:30)
--- NOTE | 2019-05-14 22:55 | OR ---
SURGEON: Deniz Martinez MD DATE OF PROCEDURE: 05/14/2019 INDICATION OF PROCEDURE: A 29-year-old G2, P0-0-1-0 at 36 weeks and 4 days with history of chronic hypertension that was well controlled in , presenting with elevated blood pressures. She had severe range of blood pressures on Labor and Delivery , was diagnosed with superimposed preeclampsia with severe features by elevated protein/creatinine ratio of 0.3. She had otherwise normal labs. She was started on magnesium sulfate for seizure prophylaxis. She was given labetalol 20mg IV, which lowered her blood pressures to mild range. The baby was in breech presentation on ultrasound. After discussion with the patient, she declined external cephalic version and desires to proceed with primary section. Risks and complications were discussed including bleeding, infection, injury to surrounding organs including bladder, bowel, and ureters. The patient expressed understanding and consent was signed. PREPROCEDURE DIAGNOSES: 1. Bowers intrauterine at 36 weeks and 4 days. 2. Chronic hypertension with superimposed preeclampsia with severe features 3. Breech presentation POSTOPERATIVE DIAGNOSES: 1. Bowers intrauterine at 36 weeks and 4 days. 2. Chronic hypertension with superimposed preeclampsia with severe features 3. Breech presentation PROCEDURE PERFORMED: Low transverse section ANESTHESIA: Spinal. ESTIMATED BLOOD LOSS: 1000 mL. FINDINGS: Bowers intrauterine in breech presentation Male fetus, Weight of [id number]. 7 and 8 Normal appearing uterus, bilateral fallopian tubes and ovaries. DESCRIPTION OF PROCEDURE: The patient was brought to the operating room. She received 2 g of Ancef and pneumatic stockings. Spinal anesthesia was applied. Perez was placed. The abdomen was prepped with chlorhexidine in a sterile fashion. She was draped and tested for anesthesia. Spinal was adequate. Pfannenstiel skin incision was made with a scalpel and dissected down to fascia. Fascia was cleared of subcutaneous tissue. The fascia was then incised in the midline with cautery and extended laterally with curved Pettit scissors. Raymond clamps were placed on the superior fascial edge. The rectus muscles were from the fascia by blunt dissection and using Pettit scissors. The rectus muscle was then on the inferior edge in a similar fashion. Peritoneum was identified and opening was made bluntly then stretched. The Elvis retractor was placed in the peritoneal cavity. Bladder was noted to be far away from the site of incision. The uterus was incised transversely at the lower uterine segment using scalpel and extended bluntly. Clear fluid noted. The infant was noted to be in complete breech presentation. The legs were delivered. The hips were grasped and turned sacrum anterior and elevated through the hysterotomy followed by the delivery of the body. The left arm was delivered by rotating the left shoulder anteriorly and sweeping the arm toward the body. The right arm and shoulder were delivered in similar fashion. The head was then delivered with flexion of the chin. The nose and mouth were suctioned. The umbilical cord was clamped and cut after 30 seconds and no longer pulsating. The was handed over to awaiting nursery staff. Cord gases were obtained. The placenta was delivered with gentle traction on the umbilical cord. The uterus was cleared of any remaining membranes with a clean lap. The Allis clamps were used to grasp the angles and lower edges of the incision. The uterine incision was closed with using 0 Monocryl in running locking fashion. Hemostasis was confirmed. The uterus was firm. Pericolic gutters were cleared of any clots. The incision was again checked for hemostasis. The peritoneum was grasped by Cardington clamps and closed using 2-0 Vicryl in a running fashion. The rectus muscles were examined and found to be hemostatic. The fascia was closed using 0 Vicryl suture in a running fashion. Subcutaneous tissue was irrigated and bleeding areas cauterized. The subcutaneous layer was closed with a running suture of 0 chromic. The skin was closed subcuticularly with 3-0 Monocryl on a Kayode needle. Telfa and ABD dressing were placed over the incision. The patient was stable and transferred to recovery room. She was given care instructions. She will continue on magnesium sulfate for 24 hours . FARTUN ANN /[id number] MADELINE
[2019-05-15] MEDS: Magnesium Sulfate/Water 20 GM/500 ML BAG IV SCH ×2 (02:24→12:22)
[2019-05-15] MEDS: Ketorolac 30 MG/ML SDV IVPUSH SCH ×4 (02:26→21:12)
[2019-05-15] MEDS: Docusate Sodium 100 MG Cap PO SCH ×3 (02:31→21:12)
[2019-05-15 03:58] LABS: BLOOD UREA NITROGEN,BUN 7 mg/dL (7.0-18.0); CARBON DIOXIDE,CO2 22.7 mmol/L (21.0-32.0); CHLORIDE,CL 102 mmol/L (98-107); GLUCOSE RANDOM 142 mg/dL (74-106); POTASSIUM,K 3.8 mmol/L (3.5-5.1); SODIUM,NA 134 mmol/L (136-145)
--- NOTE | 2019-05-15 11:42 | PCM48HPAN ---
Post Anesthesia Note - EVALUATION WITHIN 48HRS OF ANESTHETIC Vital Signs in Normal Range: Yes Patient Participated in Evaluation: Yes Respiratory Function Stable: Yes Airway Patent: Yes Cardiovascular Function Stable: Yes Hydration Status Stable: Yes Pain Control Satisfactory: Yes Nausea and Vomiting Control Satisfactory: Yes Mental Status Recovered: Yes Vital Signs: Last Vital Signs Temp 36.4 C 05/15/19 10:00 Pulse 78 05/15/19 11:00 Resp 15 05/15/19 11:00 BP 123/80 05/15/19 11:00 Pulse Ox 96 05/15/19 11:00 - COMMENTS/OBSERVATIONS Free Text/Narrative:: Doing well. Comfortable.
--- NOTE | 2019-05-15 12:33 | PCM.PNPP ---
- General Info Date of Service: 05/15/19 Functional Status: Reports: Pain Controlled, Tolerating Diet, Other (Bleeding is minimal. Has been resting in bed. Perez in place with good UO. ) - Review of Systems General: Reports: No Symptoms HEENT: Reports: No Symptoms Pulmonary: Reports: No Symptoms Cardiovascular: Reports: No Symptoms Gastrointestinal: Reports: No Symptoms Genitourinary: Reports: No Symptoms Musculoskeletal: Reports: No Symptoms Skin: Reports: No Symptoms Neurological: Reports: No Symptoms Psychiatric: Reports: No Symptoms - General Info Date of Service: 05/15/19 - Patient Data Vital Signs - Most Recent: Last Vital Signs Temp 36.4 C 05/15/19 10:00 Pulse 78 05/15/19 11:00 Resp 15 05/15/19 11:00 BP 123/80 05/15/19 11:00 Pulse Ox 96 05/15/19 11:00 Weight - Most Recent: 224 lb I&O - Last 24 Hours: Intake & Output 05/14/19 05/15/19 05/15/19 22:59 06:59 14:59 Intake Total 1975 600 900 Output Total 700 1100 470 Balance 1275 -500 430 Lab Results - Last 24 Hours: Laboratory Results - last 24 hr 05/14/19 05/14/19 05/14/19 Range/Units 13:24 13:46 13:46 WBC 12.02 H (4.0-11.0) K/uL RBC 4.15 L (4.30-5.90) M/uL Hgb 12.8 (12.0-16.0) g/dL Hct 37.9 (36.0-46.0) % MCV 91.3 (80.0-98.0) fL MCH 30.8 (27.0-32.0) pg MCHC 33.8 (31.0-37.0) g/dL RDW Std Deviation 45.1 (28.0-62.0) fl RDW Coeff of Tyler 14 (11.0-15.0) % Plt Count 279 (150-400) K/uL MPV 9.70 (7.40-12.00) fL Neut % (Auto) 58.8 (48.0-80.0) % Lymph % (Auto) 28.6 (16.0-40.0) % Butts % (Auto) 11.1 (0.0-15.0) % Eos % (Auto) 1.3 (0.0-7.0) % Baso % (Auto) 0.2 (0.0-1.5) % Neut # (Auto) 7.1 H (1.4-5.7) K/uL Lymph # (Auto) 3.4 H (0.6-2.4) K/uL Butts # (Auto) 1.3 H (0.0-0.8) K/uL Eos # (Auto) 0.2 (0.0-0.7) K/uL Baso # (Auto) 0.0 (0.0-0.1) K/uL Nucleated RBC % 0.0 /100WBC Nucleated RBCs # 0 K/uL Sodium 137 (136-145) mmol/L Potassium 3.7 (3.5-5.1) mmol/L Chloride 104 (98-107) mmol/L Carbon Dioxide 23.6 (21.0-32.0) mmol/L BUN 8 (7.0-18.0) mg/dL Creatinine 0.7 (0.6-1.0) mg/dL Est Cr Clr Drug Dosing 96.29 mL/min Estimated GFR (MDRD) > 60.0 ml/min Glucose 83 (74-106) mg/dL Uric Acid 4.3 (2.6-7.2) mg/dL Calcium 8.7 (8.5-10.1) mg/dL Magnesium (1.8-2.4) mg/dL Total Bilirubin 0.2 (0.2-1.0) mg/dL AST 19 (15-37) IU/L ALT 19 (14-63) IU/L Alkaline Phosphatase 121 H (46-116) U/L Total Protein 6.4 (6.4-8.2) g/dL Albumin 2.4 L (3.4-5.0) g/dL Globulin 4.0 (2.6-4.0) g/dL Albumin/Globulin Ratio 0.6 L (0.9-1.6) Ur Random Creatinine 196.9 mg/dL U Random Total Protein 55.9 H (<11.9) mg/dL Protein/Creatinin Ratio 0.3 Blood Type Antibody Screen 05/14/19 05/14/19 05/15/19 Range/Units 15:41 21:24 03:10 WBC (4.0-11.0) K/uL RBC (4.30-5.90) M/uL Hgb (12.0-16.0) g/dL Hct (36.0-46.0) % MCV (80.0-98.0) fL MCH (27.0-32.0) pg MCHC (31.0-37.0) g/dL RDW Std Deviation (28.0-62.0) fl RDW Coeff of Tyler (11.0-15.0) % Plt Count (150-400) K/uL MPV (7.40-12.00) fL Neut % (Auto) (48.0-80.0) % Lymph % (Auto) (16.0-40.0) % Butts % (Auto) (0.0-15.0) % Eos % (Auto) (0.0-7.0) % Baso % (Auto) (0.0-1.5) % Neut # (Auto) (1.4-5.7) K/uL Lymph # (Auto) (0.6-2.4) K/uL Butts # (Auto) (0.0-0.8) K/uL Eos # (Auto) (0.0-0.7) K/uL Baso # (Auto) (0.0-0.1) K/uL Nucleated RBC % /100WBC Nucleated RBCs # K/uL Sodium (136-145) mmol/L Potassium (3.5-5.1) mmol/L Chloride (98-107) mmol/L Carbon Dioxide (21.0-32.0) mmol/L BUN (7.0-18.0) mg/dL Creatinine (0.6-1.0) mg/dL Est Cr Clr Drug Dosing mL/min Estimated GFR (MDRD) ml/min Glucose (74-106) mg/dL Uric Acid (2.6-7.2) mg/dL Calcium (8.5-10.1) mg/dL Magnesium 4.3 H 5.2 H (1.8-2.4) mg/dL Total Bilirubin (0.2-1.0) mg/dL AST (15-37) IU/L ALT (14-63) IU/L Alkaline Phosphatase (46-116) U/L Total Protein (6.4-8.2) g/dL Albumin (3.4-5.0) g/dL Globulin (2.6-4.0) g/dL Albumin/Globulin Ratio (0.9-1.6) Ur Random Creatinine mg/dL U Random Total Protein (<11.9) mg/dL Protein/Creatinin Ratio Blood Type O POSITIVE Antibody Screen NEGATIVE 05/15/19 05/15/19 05/15/19 Range/Units 03:10 03:10 09:03 WBC 16.69 H (4.0-11.0) K/uL RBC 3.55 L (4.30-5.90) M/uL Hgb 10.9 L (12.0-16.0) g/dL Hct 33.0 L (36.0-46.0) % MCV 93.0 (80.0-98.0) fL MCH 30.7 (27.0-32.0) pg MCHC 33.0 (31.0-37.0) g/dL RDW Std Deviation 46.2 (28.0-62.0) fl RDW Coeff of Tyler 14 (11.0-15.0) % Plt Count 251 (150-400) K/uL MPV 9.60 (7.40-12.00) fL Neut % (Auto) 69.3 (48.0-80.0) % Lymph % (Auto) 21.3 (16.0-40.0) % Butts % (Auto) 8.9 (0.0-15.0) % Eos % (Auto) 0.4 (0.0-7.0) % Baso % (Auto) 0.1 (0.0-1.5) % Neut # (Auto) 11.6 H (1.4-5.7) K/uL Lymph # (Auto) 3.6 H (0.6-2.4) K/uL Butts # (Auto) 1.5 H (0.0-0.8) K/uL Eos # (Auto) 0.1 (0.0-0.7) K/uL Baso # (Auto) 0.0 (0.0-0.1) K/uL Nucleated RBC % 0.0 /100WBC Nucleated RBCs # 0 K/uL Sodium 134 L (136-145) mmol/L Potassium 3.8 (3.5-5.1) mmol/L Chloride 102 (98-107) mmol/L Carbon Dioxide 22.7 (21.0-32.0) mmol/L BUN 7 (7.0-18.0) mg/dL Creatinine 0.7 (0.6-1.0) mg/dL Est Cr Clr Drug Dosing 96.29 mL/min Estimated GFR (MDRD) > 60.0 ml/min Glucose 142 H (74-106) mg/dL Uric Acid (2.6-7.2) mg/dL Calcium 7.0 L (8.5-10.1) mg/dL Magnesium 5.7 H (1.8-2.4) mg/dL Total Bilirubin 0.3 (0.2-1.0) mg/dL AST 27 (15-37) IU/L ALT 22 (14-63) IU/L Alkaline Phosphatase 101 (46-116) U/L Total Protein 5.5 L (6.4-8.2) g/dL Albumin 2.0 L (3.4-5.0) g/dL Globulin 3.5 (2.6-4.0) g/dL Albumin/Globulin Ratio 0.6 L (0.9-1.6) Ur Random Creatinine mg/dL U Random Total Protein (<11.9) mg/dL Protein/Creatinin Ratio Blood Type Antibody Screen Med Orders - Current: Current Medications Bisacodyl (Dulcolax) 10 mg RECTAL ONETIME PRN PRN Reason: Constipation Calcium Gluconate (Calcium Gluconate) 1 gm IV ASDIRECTED PRN PRN Reason: respiratory distress Diphenhydramine HCl (Benadryl) 25 mg IVPUSH Q6H PRN PRN Reason: Itching or Nausea Docusate Sodium (Colace) 100 mg PO BID CEZAR Last Admin: 05/15/19 10:12 Dose: Not Given Emollient Ointment (Lansinoh Hpa) 0 gm TOP ASDIRECTED PRN PRN Reason: Sore Nipples Last Admin: 05/15/19 12:14 Dose: 1 tube Fentanyl (Sublimaze) 50 mcg IVPUSH Q5M PRN PRN Reason: Pain (severe 7-10) Stop: 05/15/19 18:31 Oxytocin/Sodium Chloride (Oxytocin 30 Unit/500 Ml-Ns) 30 unit in 500 mls @ 250 mls/hr IV TITRATE [facility] Lactated Ringer's (Ringers, Lactated) 1,000 mls @ 500 mls/hr IV BOLUS [facility] Last Admin: 05/14/19 17:50 Dose: 500 mls/hr Magnesium Sulfate (Magnesium Sulfate In Water Premix) 20 gm in 500 mls @ 50 mls /hr IV ASDIRECTED [facility] Last Admin: 05/15/19 12:22 Dose: 2 gm/hr, 50 mls/hr Tranexamic Acid 1,000 mg/ (Sodium Chloride) 110 mls @ 660 mls/hr IV ONETIME PRN PRN Reason: Bleeding Lactated Ringer's (Ringers, Lactated) 1,000 mls @ 125 mls/hr IV ASDIRECTED [facility] Ketorolac Tromethamine (Toradol) 30 mg IVPUSH Q6H [facility] Stop: 05/15/19 20:16 Last Admin: 05/15/19 08:12 Dose: 30 mg Misoprostol (Cytotec) 1,000 mcg RECTAL ONETIME PRN PRN Reason: excessive bleeding Nalbuphine HCl (Nubain) 2.5 mg IVPUSH Q3H PRN PRN Reason: Pruritis Stop: 05/15/19 18:32 Last Admin: 05/14/19 20:25 Dose: 2.5 mg Omeprazole (Omeprazole) 40 mg PO ACBREAKFAST [facility] Ondansetron HCl (Zofran) 4 mg IVPUSH Q4H PRN PRN Reason: Nausea/Vomiting Oxycodone/Acetaminophen (Percocet 325-5 Mg) 1 tab PO ONETIME PRN PRN Reason: Pain (moderate 4-6) Oxycodone/Acetaminophen (Percocet 325-5 Mg) 1 tab PO Q4H PRN PRN Reason: Pain (moderate 4-6) Oxycodone/Acetaminophen (Percocet 325-5 Mg) 2 tab PO Q4H PRN PRN Reason: Pain (moderate 4-6) Oxytocin (Pitocin) 10 unit IM ASDIRECTED PRN PRN Reason: Excessive Vaginal Bleeding Sodium Chloride (Saline Flush) 10 ml FLUSH ASDIRECTED PRN PRN Reason: Keep Vein Open Sodium Chloride (Saline Flush) 2.5 ml FLUSH ASDIRECTED PRN PRN Reason: Keep Vein Open Sodium Chloride (Normal Saline) 10 ml IV ASDIRECTED PRN PRN Reason: IV Use Discontinued Medications Cefazolin Sodium (Ancef) Confirm Administered Dose 2 gm .ROUTE .STK-MED ONE Stop: 05/14/19 18:14 Citric Acid/Sodium Citrate (Bicitra Solution) 30 ml PO ONETIME ONE Stop: 05/14/19 15:19 Ephedrine Sulfate (Ephedrine Sulfate) Confirm Administered Dose 100 mg .ROUTE .STK-MED ONE Stop: 05/14/19 17:40 Ephedrine Sulfate (Ephedrine Sulfate) Confirm Administered Dose 50 mg .ROUTE .ST-MED ONE Stop: 05/14/19 19:25 Cefazolin Sodium/Dextrose 2 gm (/ Premix) 50 mls @ 100 mls/hr IV ONETIME ONE Stop: 05/14/19 15:47 Magnesium Sulfate 4 gm/ Premix 100 mls @ 300 mls/hr IV BOLUS ONE Stop: 05/14/19 15:43 Last Admin: 05/14/19 16:29 Dose: 300 mls/hr Sodium Chloride (Normal Saline) Confirm Administered Dose 20 mls @ as directed .ROUTE .ST-MED ONE Stop: 05/14/19 17:41 Acetaminophen (Ofirmev) Confirm Administered Dose 100 mls @ as directed .ROUTE .ST-MED ONE Stop: 05/14/19 17:43 Sodium Chloride (Normal Saline) Confirm Administered Dose 40 mls @ as directed .ROUTE .ST-MED ONE Stop: 05/14/19 18:14 Labetalol HCl (Normodyne) 20 mg IVPUSH ONETIME ONE; Protocol Stop: 05/14/19 15:17 Last Admin: 05/14/19 16:06 Dose: 4 ml Morphine Sulfate (Duramorph Pf) Confirm Administered Dose 10 mg .ROUTE .ST-MED ONE Stop: 05/14/19 18:17 Ondansetron HCl (Zofran) Confirm Administered Dose 4 mg .ROUTE .STK-MED ONE Stop: 05/14/19 17:40 Oxytocin (Pitocin) Confirm Administered Dose 20 unit .ROUTE .STK-MED ONE Stop: 05/14/19 18:52 Phenylephrine HCl (Phenylephrine In Ns 100 Mcg/Ml) Confirm Administered Dose 1 mg .ROUTE .STK-MED ONE Stop: 05/14/19 17:40 Phenylephrine HCl (Phenylephrine In Ns 100 Mcg/Ml) Confirm Administered Dose 1 mg .ROUTE .STK-MED ONE Stop: 05/14/19 18:24 Propofol (Diprivan 20 Ml) Confirm Administered Dose 200 mg .ROUTE .STK-MED ONE Stop: 05/14/19 17:40 - Infant Interaction Disposition, : to Nursery Support Person: - Recovery Exam Fundal Tone: Firm Fundal Level: 1 Fingerbreadths Below Umbilicus Fundal Placement: Midline Lochia Amount: Scant Lochia Color: Rubra/Red Perineum Description: Intact, Minimal Bruising/Swelling Bladder Status: Indwelling Catheter in Place Urinary Elimination: Indwelling Catheter - Exam General: Alert, Oriented, Cooperative, No Acute Distress HEENT: Pupils Equal, Pupils Reactive Neck: Supple, Trachea Midline Lungs: Normal Respiratory Effort GI/Abdominal Exam: Normal Bowel Sounds, Soft, Non-Tender, No Distention Extremities: Normal Inspection, Normal Range of Motion, Non-Tender, No Pedal Edema, Other (Reflexes 2+ b/l LE) Skin: Warm, Dry, Intact Wound/Incisions: Healing Well, No Drainage Neurological: No New Focal Deficit Psy/Mental Status: Alert, Normal Affect, Normal Mood - Problem List Review Problem List Initiated/Reviewed/Updated: Yes - My Orders Last 24 Hours: My Active Orders 05/14/19 20:07 Intake and Output [RC] Q4H Urinary Catheter Removal [RC] Per Unit Routine Acetaminophen/oxyCODONE [Percocet 325-5 MG] 1 tab PO Q4H PRN Acetaminophen/oxyCODONE [Percocet 325-5 MG] 2 tab PO Q4H PRN Lanolin [Lansinoh HPA] See Dose Instructions TOP ASDIRECTED PRN Ondansetron [Zofran] 4 mg IVPUSH Q4H PRN Oxytocin [Pitocin] 10 unit IM ASDIRECTED PRN Tranexamic Acid [Cyklokapron] 1,000 mg Sodium Chloride 0.9% [Normal Saline] 100 ml IV ONETIME bisacodyL [Dulcolax] 10 mg RECTAL ONETIME PRN diphenhydrAMINE [Benadryl] 25 mg IVPUSH Q6H PRN miSOPROStoL [Cytotec] 1,000 mcg RECTAL ONETIME PRN Abdominal Binder [OM.PC] Urgent 05/14/19 20:08 Patient Status [ADT] Routine Ambulate [RC] PER UNIT ROUTINE Antiembolic Devices [RC] PER UNIT ROUTINE Communication Order [RC] PER UNIT ROUTINE Communication Order [RC] Per Unit Routine May Shower [RC] ASDIRECTED RT Incentive Spirometry [RC] Q2HWA Assess Lochia [WOMSER] Per Unit Routine Assess Uterine Involution [WOMSER] Per Unit Routine Breast Pump [WOMSER] Per Unit Routine Peripheral IV Discontinue [OM.PC] Routine Sequential Compression Device [OM.PC] Per Unit Routine 05/14/19 20:09 Heat Therapy [OM.PC] Per Unit Routine Ice Therapy [OM.PC] Per Unit Routine 05/14/19 20:15 Ketorolac [Toradol] 30 mg IVPUSH Q6H Lactated Ringers [Ringers, Lactated] 1,000 ml IV ASDIRECTED 05/14/19 21:00 Docusate Sodium [Colace] 100 mg PO BID 05/15/19 Lunch Regular Diet [DIET] 05/16/19 07:30 Omeprazole 40 mg PO ACBREAKFAST - Assessment Assessment:: 29yo s/p at 36w4d for preeclampsia with severe features and breech presentation. Currently stable on Mg. - Plan Plan:: Vitals stable. BP normotensive to low mild range. Good urine output. Normal preeclampsia labs. Mag level 5.7, no signs of toxicity Incision healing well. Pain is controlled Baby has been in nursery for respiratory issues, currently stable off O2. Continue Mag for 24hrs . Monitor BP closely. Anticipate discharge home tomorrow.
[2019-05-16] MEDS: Acetaminophen/oxyCODONE 325-5 MG Tab PO PRN ×5 (01:05→19:29)
[2019-05-16] MEDS: Omeprazole 20 MG Cap.CR PO SCH (08:09)
[2019-05-16] MEDS: Docusate Sodium 100 MG Cap PO SCH ×2 (08:09→20:48)
--- NOTE | 2019-05-16 11:40 | PCM.PNPP ---
- General Info Date of Service: 05/16/19 Functional Status: Reports: Pain Controlled, Tolerating Diet, Ambulating, Urinating, Other (Bleeding minimal) - Review of Systems General: Reports: No Symptoms HEENT: Reports: No Symptoms Pulmonary: Reports: No Symptoms Cardiovascular: Reports: No Symptoms Gastrointestinal: Reports: No Symptoms Genitourinary: Reports: No Symptoms Musculoskeletal: Reports: No Symptoms Skin: Reports: No Symptoms Neurological: Reports: No Symptoms Psychiatric: Reports: No Symptoms - Patient Data Vital Signs - Most Recent: Last Vital Signs Temp 36.5 C 05/16/19 09:00 Pulse 82 05/16/19 09:00 Resp 16 05/16/19 09:00 BP 117/56 L 05/16/19 09:00 Pulse Ox 97 05/16/19 09:00 Weight - Most Recent: 213 lb 2.992 oz I&O - Last 24 Hours: Intake & Output 05/15/19 05/16/19 05/16/19 22:59 06:59 14:59 Intake Total 375 Output Total 1550 Balance -1175 Lab Results - Last 24 Hours: Laboratory Results - last 24 hr 05/15/19 Range/Units 15:13 Magnesium 5.5 H (1.8-2.4) mg/dL Med Orders - Current: Current Medications Bisacodyl (Dulcolax) 10 mg RECTAL ONETIME PRN PRN Reason: Constipation Calcium Gluconate (Calcium Gluconate) 1 gm IV ASDIRECTED PRN PRN Reason: respiratory distress Diphenhydramine HCl (Benadryl) 25 mg IVPUSH Q6H PRN PRN Reason: Itching or Nausea Docusate Sodium (Colace) 100 mg PO BID [facility] Last Admin: 05/16/19 08:09 Dose: 100 mg Emollient Ointment (Lansinoh Hpa) 0 gm TOP ASDIRECTED PRN PRN Reason: Sore Nipples Last Admin: 05/15/19 12:14 Dose: 1 tube Oxytocin/Sodium Chloride (Oxytocin 30 Unit/500 Ml-Ns) 30 unit in 500 mls @ 250 mls/hr IV TITRATE [facility] Lactated Ringer's (Ringers, Lactated) 1,000 mls @ 500 mls/hr IV BOLUS [facility] Last Admin: 05/14/19 17:50 Dose: 500 mls/hr Magnesium Sulfate (Magnesium Sulfate In Water Premix) 20 gm in 500 mls @ 50 mls /hr IV ASDIRECTED [facility] Last Admin: 05/15/19 12:22 Dose: 2 gm/hr, 50 mls/hr Tranexamic Acid 1,000 mg/ (Sodium Chloride) 110 mls @ 660 mls/hr IV ONETIME PRN PRN Reason: Bleeding Lactated Ringer's (Ringers, Lactated) 1,000 mls @ 125 mls/hr IV ASDIRECTED [facility] Misoprostol (Cytotec) 1,000 mcg RECTAL ONETIME PRN PRN Reason: excessive bleeding Omeprazole (Omeprazole) 40 mg PO ACBREAKFAST [facility] Last Admin: 05/16/19 08:09 Dose: 40 mg Ondansetron HCl (Zofran) 4 mg IVPUSH Q4H PRN PRN Reason: Nausea/Vomiting Oxycodone/Acetaminophen (Percocet 325-5 Mg) 1 tab PO ONETIME PRN PRN Reason: Pain (moderate 4-6) Oxycodone/Acetaminophen (Percocet 325-5 Mg) 1 tab PO Q4H PRN PRN Reason: Pain (moderate 4-6) Last Admin: 05/16/19 05:04 Dose: 1 tab Oxycodone/Acetaminophen (Percocet 325-5 Mg) 2 tab PO Q4H PRN PRN Reason: Pain (moderate 4-6) Last Admin: 05/16/19 09:16 Dose: 2 tab Oxytocin (Pitocin) 10 unit IM ASDIRECTED PRN PRN Reason: Excessive Vaginal Bleeding Sodium Chloride (Saline Flush) 10 ml FLUSH ASDIRECTED PRN PRN Reason: Keep Vein Open Sodium Chloride (Saline Flush) 2.5 ml FLUSH ASDIRECTED PRN PRN Reason: Keep Vein Open Sodium Chloride (Normal Saline) 10 ml IV ASDIRECTED PRN PRN Reason: IV Use Discontinued Medications Cefazolin Sodium (Ancef) Confirm Administered Dose 2 gm .ROUTE .STK-MED ONE Stop: 05/14/19 18:14 Citric Acid/Sodium Citrate (Bicitra Solution) 30 ml PO ONETIME ONE Stop: 05/14/19 15:19 Last Admin: 05/16/19 10:09 Dose: Not Given Ephedrine Sulfate (Ephedrine Sulfate) Confirm Administered Dose 100 mg .ROUTE .STK-MED ONE Stop: 05/14/19 17:40 Ephedrine Sulfate (Ephedrine Sulfate) Confirm Administered Dose 50 mg .ROUTE .STK-MED ONE Stop: 05/14/19 19:25 Fentanyl (Sublimaze) 50 mcg IVPUSH Q5M PRN PRN Reason: Pain (severe 7-10) Stop: 05/15/19 18:31 Cefazolin Sodium/Dextrose 2 gm (/ Premix) 50 mls @ 100 mls/hr IV ONETIME ONE Stop: 05/14/19 15:47 Last Admin: 05/16/19 10:09 Dose: Not Given Magnesium Sulfate 4 gm/ Premix 100 mls @ 300 mls/hr IV BOLUS ONE Stop: 05/14/19 15:43 Last Admin: 05/14/19 16:29 Dose: 300 mls/hr Sodium Chloride (Normal Saline) Confirm Administered Dose 20 mls @ as directed .ROUTE .STK-MED ONE Stop: 05/14/19 17:41 Acetaminophen (Ofirmev) Confirm Administered Dose 100 mls @ as directed .ROUTE .ST-MED ONE Stop: 05/14/19 17:43 Last Admin: 05/16/19 10:09 Dose: Not Given Sodium Chloride (Normal Saline) Confirm Administered Dose 40 mls @ as directed .ROUTE .ST-MED ONE Stop: 05/14/19 18:14 Ketorolac Tromethamine (Toradol) 30 mg IVPUSH Q6H [facility] Stop: 05/15/19 20:16 Last Admin: 05/15/19 21:12 Dose: 30 mg Labetalol HCl (Normodyne) 20 mg IVPUSH ONETIME ONE; Protocol Stop: 05/14/19 15:17 Last Admin: 05/14/19 16:06 Dose: 4 ml Morphine Sulfate (Duramorph Pf) Confirm Administered Dose 10 mg .ROUTE .STK-MED ONE Stop: 05/14/19 18:17 Nalbuphine HCl (Nubain) 2.5 mg IVPUSH Q3H PRN PRN Reason: Pruritis Stop: 05/15/19 18:32 Last Admin: 05/14/19 20:25 Dose: 2.5 mg Ondansetron HCl (Zofran) Confirm Administered Dose 4 mg .ROUTE .STK-MED ONE Stop: 05/14/19 17:40 Oxytocin (Pitocin) Confirm Administered Dose 20 unit .ROUTE .STK-MED ONE Stop: 05/14/19 18:52 Phenylephrine HCl (Phenylephrine In Ns 100 Mcg/Ml) Confirm Administered Dose 1 mg .ROUTE .STK-MED ONE Stop: 05/14/19 17:40 Phenylephrine HCl (Phenylephrine In Ns 100 Mcg/Ml) Confirm Administered Dose 1 mg .ROUTE .STK-MED ONE Stop: 05/14/19 18:24 Propofol (Diprivan 20 Ml) Confirm Administered Dose 200 mg .ROUTE .STK-MED ONE Stop: 05/14/19 17:40 - Interaction Disposition, : to Nursery Interaction: Holding Feeding: Breastfed Infant; Nursed Well Support Person: - Recovery Exam Fundal Tone: Firm Fundal Level: 1 Fingerbreadths Below Umbilicus Fundal Placement: Midline Lochia Amount: Scant Lochia Color: Rubra/Red Perineum Description: Intact, Minimal Bruising/Swelling Episiotomy/Laceration: None Bladder Status: Voiding Urinary Elimination: Voided Other Urinary Elimination, : Catheter out. Waiting for patient to have an initial void. - Exam General: Alert, Oriented, Cooperative, No Acute Distress HEENT: Pupils Equal, Pupils Reactive Neck: Supple, Trachea Midline Lungs: Normal Respiratory Effort GI/Abdominal Exam: Soft, Non-Tender, No Distention Extremities: Normal Inspection, Normal Range of Motion, Non-Tender, No Pedal Edema Skin: Warm, Dry, Intact Wound/Incisions: Healing Well, No Drainage Neurological: No New Focal Deficit Psy/Mental Status: Alert, Normal Affect, Normal Mood - Problem List Review Problem List Initiated/Reviewed/Updated: Yes - My Orders Last 24 Hours: My Active Orders 05/15/19 Lunch Regular Diet [DIET] 05/16/19 07:30 Omeprazole 40 mg PO ACBREAKFAST - Assessment Assessment:: 29yo POD2 s/p at 36w4d for preeclampsia with severe features and breech presentation s/p 24hr of Mg . Stable and recovering well - Plan Plan:: Vitals stable. BP normotensive to low mild range. Incision healing well. Tolerating PO and passing flatus Hgb 10.9, minimal bleeding, denies s/s of anemia. Pain is controlled and supplementing due to low supply Monitor BP closely. Anticipate discharge home tomorrow.
[2019-05-16] MEDS: Ibuprofen 800 MG Tab PO PRN (16:21)
[2019-05-17] MEDS: Ibuprofen 800 MG Tab PO PRN ×2 (00:21→08:38)
[2019-05-17] MEDS: Acetaminophen/oxyCODONE 325-5 MG Tab PO PRN ×4 (00:22→16:16)
[2019-05-17] MEDS: Omeprazole 20 MG Cap.CR PO SCH (08:37)
[2019-05-17] MEDS: Docusate Sodium 100 MG Cap PO SCH (08:39)
[2019-05-17 10:23] VITALS: BP 155/85; PULSE 76
[2019-05-17] MEDS ORDERED: Cetirizine 10 MG Tab PO ONE ×2 (10:31→12:30)
--- NOTE | 2019-05-17 11:17 | PCM.PNPP ---
- General Info Date of Service: 05/24/19 Subjective Update: Doing well overall, worried about . She has developed a erythematous skin rash along her buttocks. Appears to be confluent and most likely allergic in nature She notes pain is otherwise controlled. Ambulating, voiding. Passing flatus. Lochia is minimal. Functional Status: Reports: Pain Controlled, Tolerating Diet, Ambulating, Urinating - Review of Systems General: Denies: Fever, Weakness Pulmonary: Denies: Shortness of Breath Cardiovascular: Denies: Chest Pain, Palpitations, Lightheadedness Gastrointestinal: Denies: Abdominal Pain, Nausea, Vomiting Genitourinary: Denies: Flank Pain Musculoskeletal: Reports: No Symptoms Skin: Reports: Rash Neurological: Reports: No Symptoms Psychiatric: Reports: No Symptoms - General Info Date of Service: 05/17/19 - Patient Data Vital Signs - Most Recent: Last Vital Signs Temp 36.7 C 05/17/19 09:00 Pulse 76 05/17/19 09:00 Resp 15 05/17/19 09:00 BP 155/85 H 05/17/19 09:00 Pulse Ox 95 05/17/19 09:00 Weight - Most Recent: 96.7 kg Med Orders - Current: Current Medications Bisacodyl (Dulcolax) 10 mg RECTAL ONETIME PRN PRN Reason: Constipation Calcium Gluconate (Calcium Gluconate) 1 gm IV ASDIRECTED PRN PRN Reason: respiratory distress Diphenhydramine HCl (Benadryl) 25 mg IVPUSH Q6H PRN PRN Reason: Itching or Nausea Docusate Sodium (Colace) 100 mg PO BID [facility] Last Admin: 05/17/19 08:39 Dose: 100 mg Emollient Ointment (Lansinoh Hpa) 0 gm TOP ASDIRECTED PRN PRN Reason: Sore Nipples Last Admin: 05/15/19 12:14 Dose: 1 tube Oxytocin/Sodium Chloride (Oxytocin 30 Unit/500 Ml-Ns) 30 unit in 500 mls @ 250 mls/hr IV TITRATE [facility] Lactated Ringer's (Ringers, Lactated) 1,000 mls @ 500 mls/hr IV BOLUS [facility] Last Admin: 05/14/19 17:50 Dose: 500 mls/hr Magnesium Sulfate (Magnesium Sulfate In Water Premix) 20 gm in 500 mls @ 50 mls /hr IV ASDIRECTED [facility] Last Admin: 05/15/19 12:22 Dose: 2 gm/hr, 50 mls/hr Tranexamic Acid 1,000 mg/ (Sodium Chloride) 110 mls @ 660 mls/hr IV ONETIME PRN PRN Reason: Bleeding Lactated Ringer's (Ringers, Lactated) 1,000 mls @ 125 mls/hr IV ASDIRECTED [facility] Ibuprofen (Motrin) 800 mg PO Q8H PRN PRN Reason: Pain Last Admin: 05/17/19 08:38 Dose: 800 mg Misoprostol (Cytotec) 1,000 mcg RECTAL ONETIME PRN PRN Reason: excessive bleeding Omeprazole (Omeprazole) 40 mg PO ACBREAKFAST [facility] Last Admin: 05/17/19 08:37 Dose: 40 mg Ondansetron HCl (Zofran) 4 mg IVPUSH Q4H PRN PRN Reason: Nausea/Vomiting Oxycodone/Acetaminophen (Percocet 325-5 Mg) 1 tab PO ONETIME PRN PRN Reason: Pain (moderate 4-6) Last Admin: 05/17/19 08:40 Dose: 1 tab Oxycodone/Acetaminophen (Percocet 325-5 Mg) 1 tab PO Q4H PRN PRN Reason: Pain (moderate 4-6) Last Admin: 05/17/19 00:22 Dose: 1 tab Oxycodone/Acetaminophen (Percocet 325-5 Mg) 2 tab PO Q4H PRN PRN Reason: Pain (moderate 4-6) Last Admin: 05/17/19 04:36 Dose: 2 tab Oxytocin (Pitocin) 10 unit IM ASDIRECTED PRN PRN Reason: Excessive Vaginal Bleeding Sodium Chloride (Saline Flush) 10 ml FLUSH ASDIRECTED PRN PRN Reason: Keep Vein Open Sodium Chloride (Saline Flush) 2.5 ml FLUSH ASDIRECTED PRN PRN Reason: Keep Vein Open Sodium Chloride (Normal Saline) 10 ml IV ASDIRECTED PRN PRN Reason: IV Use Discontinued Medications Cefazolin Sodium (Ancef) Confirm Administered Dose 2 gm .ROUTE .STK-MED ONE Stop: 05/14/19 18:14 Cetirizine HCl (Zyrtec) 10 mg PO ONETIME ONE Stop: 05/17/19 10:32 Citric Acid/Sodium Citrate (Bicitra Solution) 30 ml PO ONETIME ONE Stop: 05/14/19 15:19 Last Admin: 05/16/19 10:09 Dose: Not Given Ephedrine Sulfate (Ephedrine Sulfate) Confirm Administered Dose 100 mg .ROUTE .STK-MED ONE Stop: 05/14/19 17:40 Ephedrine Sulfate (Ephedrine Sulfate) Confirm Administered Dose 50 mg .ROUTE .STK-MED ONE Stop: 05/14/19 19:25 Fentanyl (Sublimaze) 50 mcg IVPUSH Q5M PRN PRN Reason: Pain (severe 7-10) Stop: 05/15/19 18:31 Cefazolin Sodium/Dextrose 2 gm (/ Premix) 50 mls @ 100 mls/hr IV ONETIME ONE Stop: 05/14/19 15:47 Last Admin: 05/16/19 10:09 Dose: Not Given Magnesium Sulfate 4 gm/ Premix 100 mls @ 300 mls/hr IV BOLUS ONE Stop: 05/14/19 15:43 Last Admin: 05/14/19 16:29 Dose: 300 mls/hr Sodium Chloride (Normal Saline) Confirm Administered Dose 20 mls @ as directed .ROUTE .STK-MED ONE Stop: 05/14/19 17:41 Acetaminophen (Ofirmev) Confirm Administered Dose 100 mls @ as directed .ROUTE .STK-MED ONE Stop: 05/14/19 17:43 Last Admin: 05/16/19 10:09 Dose: Not Given Sodium Chloride (Normal Saline) Confirm Administered Dose 40 mls @ as directed .ROUTE .STK-MED ONE Stop: 05/14/19 18:14 Ketorolac Tromethamine (Toradol) 30 mg IVPUSH Q6H [facility] Stop: 05/15/19 20:16 Last Admin: 05/15/19 21:12 Dose: 30 mg Labetalol HCl (Normodyne) 20 mg IVPUSH ONETIME ONE; Protocol Stop: 05/14/19 15:17 Last Admin: 05/14/19 16:06 Dose: 4 ml Morphine Sulfate (Duramorph Pf) Confirm Administered Dose 10 mg .ROUTE .STK-MED ONE Stop: 05/14/19 18:17 Nalbuphine HCl (Nubain) 2.5 mg IVPUSH Q3H PRN PRN Reason: Pruritis Stop: 05/15/19 18:32 Last Admin: 05/14/19 20:25 Dose: 2.5 mg Ondansetron HCl (Zofran) Confirm Administered Dose 4 mg .ROUTE .STK-MED ONE Stop: 05/14/19 17:40 Oxytocin (Pitocin) Confirm Administered Dose 20 unit .ROUTE .STK-MED ONE Stop: 05/14/19 18:52 Phenylephrine HCl (Phenylephrine In Ns 100 Mcg/Ml) Confirm Administered Dose 1 mg .ROUTE .STK-MED ONE Stop: 05/14/19 17:40 Phenylephrine HCl (Phenylephrine In Ns 100 Mcg/Ml) Confirm Administered Dose 1 mg .ROUTE .STK-MED ONE Stop: 05/14/19 18:24 Propofol (Diprivan 20 Ml) Confirm Administered Dose 200 mg .ROUTE .STK-MED ONE Stop: 05/14/19 17:40 - Infant Interaction Infant Disposition, : [place] to Nursery Infant Interaction: Holding Infant Infant Feeding: Breastfed ; Nursed Well Support Person: - Recovery Exam Fundal Tone: Firm Fundal Level: 1 Fingerbreadths Below Umbilicus Fundal Placement: Midline Lochia Amount: Scant Lochia Color: Rubra/Red Perineum Description: Intact, Minimal Bruising/Swelling Episiotomy/Laceration: None Bladder Status: Voiding Urinary Elimination: Voided Other Urinary Elimination, : Catheter out. Waiting for patient to have an initial void. - Exam General: Alert, Oriented Lungs: Normal Respiratory Effort Cardiovascular: Regular Rate, Regular Rhythm GI/Abdominal Exam: Normal Bowel Sounds, Soft Extremities: Pedal Edema (trace). No: Sherri's Sign Skin: Warm, Dry, Intact, Rash (along buttocks, confluent erythematous appears to be contact dermatitis) Wound/Incisions: Healing Well Neurological: No New Focal Deficit Psy/Mental Status: Alert, Normal Affect, Normal Mood - Problem List & Annotations (1) Delivery by section SNOMED Code(s): 789735995 Code(s): [id number] - Status: Acute Current Visit: Yes (2) Preeclampsia SNOMED Code(s): 736993756 Code(s): O14.90 - UNSPECIFIED PRE-ECLAMPSIA, UNSPECIFIED TRIMESTER Status: Acute Current Visit: Yes - Problem List Review Problem List Initiated/Reviewed/Updated: Yes - My Orders Last 24 Hours: My Active Orders 05/17/19 10:31 Ready for Discharge [RC] PER UNIT ROUTINE - Assessment Assessment:: 29yo POD3 s/p at 36w4d for preeclampsia with severe features and breech presentation s/p 24hr of Mg . Stable and recovering well - Plan Plan:: Blood pressures overall reassuring. Patient is chronic hypertensive, so will start labetalol 100 mg bid and monitor She is ready to go home. Discussed rash on buttocks appears to most likely be allergic in nature and advise antihistamine orally and calamine lotion topically --she is to call if worsens. Would also avoid elastic to region Discharge instructions reviewed. Follow up at [facility] 2 and 6 weeks
== END 2019-05-17 17:35 | disposition home or self-care (01) | DRG 540 ==
LOC: MW.OB 13:21 → MW.OBCHECK 13:21 → MW.OB 18:00 → OBSVTOIN 20:08 → MW.OB 20:30
PROVIDERS: ADMIT Obstetrics & Gynecology; ATTEND Obstetrics & Gynecology
PROC: 10D00Z1 Extraction of Products of Conception, Low, Open Approach (ICD-10-PCS; principal; 2019-05-14)
DX: O11.4 Pre-existing hypertension with pre-eclampsia, complicating childbirth (principal); O32.1XX0 Maternal care for breech presentation, not applicable or unspecified; O43.193 Other malformation of placenta, third trimester; Z37.0 Single live birth; O99.62 Diseases of the digestive system complicating childbirth; K21.9 Gastro-esophageal reflux disease without esophagitis; E66.9 Obesity, unspecified; O99.214 Obesity complicating childbirth; Z79.899 Other long term (current) drug therapy; Z3A.36 36 weeks gestation of pregnancy; Z79.82 Long term (current) use of aspirin; Z90.89 Acquired absence of other organs
CPT/HCPCS: 36415; 59025; 80053; 82570; 83735; 84156; 84550; 85025; 86593; 86850; 86900; 86901; A9270-GY; J0131; J0690; J1885; J2270; J2300; J2370; J2405; J2590; J2704; J3475; J3490; J7120

== ENCOUNTER 2021-06-18 18:03 | Emergency (ER) | payer BC ==
[2021-06-18] MEDS ORDERED: Sodium Chloride 0.9% 1,000 ML IV ONE ×2 (18:20→18:23)
[2021-06-18] MEDS ORDERED: Ondansetron 4 MG/2 ML SDV IVPUSH ONE (18:23)
[2021-06-18] MEDS ORDERED: Morphine 4 MG/ML VIAL IVPUSH ONE (18:23)
[2021-06-18 19:18] LABS: BLOOD UREA NITROGEN,BUN 11 mg/dL (7.0-18.0); CARBON DIOXIDE,CO2 21.1 mmol/L (21.0-32.0); CHLORIDE,CL 101 mmol/L (98-107); GLUCOSE RANDOM 105 mg/dL (74-106); LIPASE 46 U/L (73-393); POTASSIUM,K 3.7 mmol/L (3.5-5.1); SODIUM,NA 138 mmol/L (136-145)
[2021-06-18 20:01] LABS: CORONAVIRUS COVID-19 NAA NEGATIVE (NEGATIVE); INFLUENZA A NAA NEGATIVE (NEGATIVE); INFLUENZA B NAA NEGATIVE (NEGATIVE)
[2021-06-18] MEDS ORDERED: Iopamidol 755 MG/ML 500 ML Multipack Bottle IVPUSH ONE (20:11)
[2021-06-18] MEDS ORDERED: metroNIDAZOLE 250 MG Tab PO ONE (23:39)
[2021-06-19 00:01] VITALS: BP 90/60; PULSE 102
== END 2021-06-19 00:01 | disposition home or self-care (01) ==
LOC: MW.ED 18:03
DX: A04.72 Enterocolitis due to Clostridium difficile, not specified as recurrent (principal); I10 Essential (primary) hypertension; K21.9 Gastro-esophageal reflux disease without esophagitis; E66.9 Obesity, unspecified; Z68.34 Body mass index [BMI] 34.0-34.9, adult; Z79.899 Other long term (current) drug therapy; Z20.822 Contact with and (suspected) exposure to COVID-19
CPT/HCPCS: 0240U; 36415; 74177; 80053; 81001; 83605; 83690; 84703; 85025; 87040; 87045; 87046; 87324; 87449; 87493; 87899; 93005; 96374; 96375; 99284; A9270; J2270; J2405; J7030; Q9967

== ENCOUNTER 2022-06-18 05:21 | Inpatient (IN) | payer BC ==
[2022-06-18] MEDS ORDERED: Naloxone 0.4 MG/ML SDV IVPUSH PRN (05:57)
[2022-06-18] MEDS ORDERED: Albuterol 0.083% 2.5 MG/3 ML Neb Soln NEB PRN (05:57)
[2022-06-18] MEDS ORDERED: HYDROmorphone 2 MG/ML Syringe IVPUSH PRN (05:57)
[2022-06-18] MEDS ORDERED: Ondansetron 4 MG/2 ML SDV IVPUSH PRN ×4 (05:57→08:51)
[2022-06-18] MEDS ORDERED: fentaNYL 100 MCG/2 ML SDV IVPUSH PRN ×2 (05:57)
[2022-06-18] MEDS ORDERED: Metoclopramide 10 MG/2 ML SDV IVPUSH PRN (05:57)
[2022-06-18] MEDS ORDERED: Morphine 2 MG/ML SYRINGE IVPUSH PRN (05:57)
[2022-06-18] MEDS ORDERED: Acetaminophen/oxyCODONE 325-5 MG Tab PO PRN ×3 (05:57→06:37)
[2022-06-18] MEDS ORDERED: ePHEDrine 50 MG/ML SDV IVPUSH PRN (05:57)
[2022-06-18] MEDS ORDERED: diphenhydrAMINE 50 MG/ML SDV IVPUSH PRN ×3 (05:57→08:51)
[2022-06-18] MEDS: Lactated Ringers 1,000 ML IV SCH ×3 (06:00→21:00)
[2022-06-18] MEDS ORDERED: Lidocaine 2% 5 ML SDV ONE ×2 (06:11→06:21)
[2022-06-18] MEDS ORDERED: Dexamethasone 4 MG/ML 5 ML MDV ONE (06:11)
[2022-06-18] MEDS ORDERED: Ondansetron 4 MG/2 ML SDV ONE ×2 (06:11→06:21)
[2022-06-18] MEDS ORDERED: Oxytocin 10 Units/1 ML SDV ONE ×2 (06:11→06:21)
[2022-06-18] MEDS ORDERED: Ropivacaine 0.5% 5 MG/ML 30 ML SDV ONE ×2 (06:11→06:21)
[2022-06-18] MEDS ORDERED: ceFAZolin 1 GM Vial ONE (06:11)
[2022-06-18] MEDS ORDERED: fentaNYL 100 MCG/2 ML SDV ONE (06:11)
[2022-06-18] MEDS ORDERED: Dexmedetomidine 200 MCG/2 ML SDV ONE ×2 (06:11→06:21)
[2022-06-18] MEDS ORDERED: Morphine PF 10 MG/10 ML SDV ONE (06:12)
[2022-06-18] MEDS ORDERED: Water For Injection, Sterile 20 ML ONE (06:15)
[2022-06-18] MEDS ORDERED: Phenylephrine 1% 10 MG/ML SDV ONE (06:21)
[2022-06-18] MEDS ORDERED: Tranexamic Acid 1,000 MG in Sodium Chloride 0.9% 100 ML IV PRN ×5 (06:37→08:51)
[2022-06-18] MEDS ORDERED: Bisacodyl 10 MG Supp RECTAL PRN ×2 (06:37→08:51)
[2022-06-18] MEDS ORDERED: Methylergonovine 0.2 MG/1 ML Amp IM PRN ×3 (06:37→08:51)
[2022-06-18] MEDS ORDERED: Oxytocin 10 Units/1 ML SDV IM PRN ×2 (06:37→08:51)
[2022-06-18] MEDS ORDERED: Water For Irrigation,Sterile 1,000 ML Container IRR PRN (06:37)
[2022-06-18] MEDS ORDERED: Sodium Chloride 0.9% 10 ML Syringe FLUSH PRN (06:37)
[2022-06-18] MEDS ORDERED: Lidocaine 1% 50 ML MDV INJECT PRN (06:37)
[2022-06-18] MEDS ORDERED: Sodium Chloride 0.9% 2.5 ML Syringe FLUSH PRN (06:37)
[2022-06-18] MEDS ORDERED: Sodium Chloride 0.9% 20 ML SDV IV PRN (06:37)
[2022-06-18] MEDS ORDERED: Lanolin 100% Cream 7 GM Tube TOP PRN ×2 (06:37→08:51)
[2022-06-18] MEDS ORDERED: Carboprost Tromethamine 250 MCG/1 ML Amp IM PRN (06:37)
[2022-06-18] MEDS ORDERED: Butorphanol 1 MG/ML SDV IVPUSH PRN (06:37)
[2022-06-18] MEDS ORDERED: Lactated Ringers 1,000 ML IV SCH ×2 (06:45→09:00)
[2022-06-18] MEDS ORDERED: Oxytocin/0.9 % Sodium Chloride 30 UNIT/500 ML BAG IV SCH (06:45)
[2022-06-18] MEDS ORDERED: ceFAZolin 2 GM in Premix Bag 1 BAG IV ONE (06:47)
[2022-06-18] MEDS ORDERED: Citric Acid/Sodium Citrate Solution 30 ML Cup PO ONE (06:48)
[2022-06-18] MEDS ORDERED: Ketorolac 30 MG/ML SDV IVPUSH SCH (07:00)
[2022-06-18] MEDS ORDERED: Glycopyrrolate 0.2 MG/ML SDV ONE (07:54)
[2022-06-18] MEDS ORDERED: Misoprostol 200 MCG Tab RECTAL PRN (08:51)
[2022-06-18] MEDS ORDERED: Docusate Sodium 100 MG Cap PO SCH (09:00)
[2022-06-18] MEDS ORDERED: Acetaminophen 1,000 MG in Premix Bag 1 BAG IV SCH (09:00)
[2022-06-18] MEDS ORDERED: Midazolam 1 MG/ML 2 ML SDV ONE (09:11)
[2022-06-18] MEDS: Docusate Sodium 100 MG Cap PO SCH ×2 (09:56→22:07)
[2022-06-18] MEDS: Acetaminophen 1,000 MG in Premix Bag 1 BAG IV SCH ×2 (14:29→20:37)
[2022-06-18] MEDS: Ibuprofen 800 MG Tab PO PRN (17:23)
[2022-06-18] MEDS: Simethicone 80 MG Tab.Chew PO SCH (18:23)
[2022-06-18] MEDS: Enoxaparin 40 MG/0.4 ML Syringe SUBCUT SCH (22:03)
[2022-06-19] MEDS: Simethicone 80 MG Tab.Chew PO SCH ×6 (01:44→23:29)
[2022-06-19] MEDS: Acetaminophen 1,000 MG in Premix Bag 1 BAG IV SCH ×2 (02:45→08:27)
[2022-06-19] MEDS: Docusate Sodium 100 MG Cap PO SCH ×2 (08:27→21:25)
[2022-06-19] MEDS: Enoxaparin 40 MG/0.4 ML Syringe SUBCUT SCH ×2 (08:27→21:24)
[2022-06-19] MEDS: Ibuprofen 800 MG Tab PO PRN ×2 (10:56→21:25)
[2022-06-19] MEDS: Phenylephrine HCl In 0.9% NaCl 1 MG/10 ML Vial IVPUSH SCH (11:31)
[2022-06-19] MEDS ORDERED: Ibuprofen 800 MG Tab PO PRN (14:00)
[2022-06-19] MEDS: Acetaminophen/oxyCODONE 325-5 MG Tab PO PRN ×2 (19:30→23:30)
[2022-06-20] MEDS: Acetaminophen/oxyCODONE 325-5 MG Tab PO PRN ×5 (04:13→21:03)
[2022-06-20] MEDS: Simethicone 80 MG Tab.Chew PO SCH ×3 (06:03→17:40)
[2022-06-20] MEDS: Docusate Sodium 100 MG Cap PO SCH ×2 (09:06→20:55)
[2022-06-20] MEDS: Enoxaparin 40 MG/0.4 ML Syringe SUBCUT SCH ×2 (09:06→20:55)
[2022-06-20] MEDS: diphenhydrAMINE 25 MG Cap PO PRN ×2 (11:36→20:55)
[2022-06-20] MEDS: Ibuprofen 800 MG Tab PO PRN ×2 (13:22→21:39)
[2022-06-20] MEDS: LABETALOL 100 MG PO SCH (20:56)
[2022-06-21] MEDS: Simethicone 80 MG Tab.Chew PO SCH ×2 (00:59→05:33)
[2022-06-21] MEDS: Acetaminophen/oxyCODONE 325-5 MG Tab PO PRN ×3 (01:03→09:12)
[2022-06-21] MEDS: diphenhydrAMINE 25 MG Cap PO PRN ×3 (01:21→09:30)
[2022-06-21] MEDS: Ibuprofen 800 MG Tab PO PRN (05:39)
[2022-06-21] MEDS ORDERED: OMEPRAZOLE 40 MG PO SCH (07:30)
[2022-06-21 08:15] VITALS: PULSE 81
[2022-06-21] MEDS: LABETALOL 100 MG PO SCH (09:10)
[2022-06-21] MEDS: Docusate Sodium 100 MG Cap PO SCH (09:11)
[2022-06-21] MEDS: Enoxaparin 40 MG/0.4 ML Syringe SUBCUT SCH (09:15)
[2022-06-21 10:25] VITALS: BP 142/89
== END 2022-06-21 11:50 | disposition home or self-care (01) | DRG 540 ==
LOC: MW.OB 05:21
PROVIDERS: ADMIT Obstetrics & Gynecology; ATTEND Obstetrics & Gynecology
PROC: 10D00Z1 Extraction of Products of Conception, Low, Open Approach (ICD-10-PCS; principal; 2022-06-18)
DX: O10.92 Unspecified pre-existing hypertension complicating childbirth (principal); Z3A.37 37 weeks gestation of pregnancy; Z37.0 Single live birth; O99.12 Other diseases of the blood and blood-forming organs and certain disorders involving the immune mechanism complicating childbirth; O34.211 Maternal care for low transverse scar from previous cesarean delivery; O99.214 Obesity complicating childbirth; Z20.822 Contact with and (suspected) exposure to COVID-19; D68.61 Antiphospholipid syndrome; E66.9 Obesity, unspecified
CPT/HCPCS: 01961; 36415; 59025; 64488; 82803; 85025; 85027; 86592; 86850; 86900; 86901; A9270-GY; J0131; J0690; J1100; J1650; J1790; J2250; J2274; J2370; J2405; J2590; J2795; J3010; J3490; J7120; U0002

== ENCOUNTER 2022-09-19 20:05 | Emergency (ER) | payer BC ==
[2022-09-19] MEDS ORDERED: Ketorolac 30 MG/ML SDV IVPUSH ONE (20:25)
[2022-09-19] MEDS ORDERED: Ondansetron 4 MG/2 ML SDV IVPUSH ONE (20:25)
[2022-09-19] MEDS ORDERED: Sodium Chloride 0.9% 1,000 ML IV ONE (20:25)
[2022-09-19 22:00] VITALS: BP 133/68; PULSE 86
== END 2022-09-19 21:59 | disposition home or self-care (01) ==
LOC: MW.ED 20:05
DX: G43.909 Migraine, unspecified, not intractable, without status migrainosus (principal); I10 Essential (primary) hypertension; K21.9 Gastro-esophageal reflux disease without esophagitis; E66.9 Obesity, unspecified; Z79.899 Other long term (current) drug therapy; Z91.048 Other nonmedicinal substance allergy status; Z68.35 Body mass index [BMI] 35.0-35.9, adult
CPT/HCPCS: 70450; 96361; 96374; 96375; 99284; J1885; J2405; J7030

== ENCOUNTER 2023-02-28 10:23 | Day surgery (SDC) | payer BC ==
[~2023-02-28 10:23] MED LIST changes: -Acetaminophen/HYDROcodone 325-5 MG Tab PO PRN; -Bupivacaine 0.25% 10 ML SDV ONE; -Lidocaine 1% 50 ML MDV ONE; -Midazolam 1 MG/ML 2 ML SDV ONE; -Ondansetron 4 MG/2 ML SDV ONE; -Propofol 200 MG/20 ML SDV ONE; +Sodium Chloride 0.9% 10 ML Syringe FLUSH PRN; +Sodium Chloride 0.9% 2.5 ML Syringe FLUSH PRN; +Sodium Chloride 0.9% 20 ML SDV IV PRN; -ceFAZolin 2 GM in Premix Bag 1 BAG IV SCH; -fentaNYL 100 MCG/2 ML SDV ONE
[2023-02-28] MEDS ORDERED: Propofol 200 MG/20 ML SDV ONE ×2 (15:30→16:12)
[2023-02-28] MEDS ORDERED: Lactated Ringers 1,000 ML IV SCH (16:45)
[2023-02-28 17:03] VITALS: BP 124/62; PULSE 59
== END 2023-02-28 17:10 | disposition home or self-care (01) ==
LOC: MW.SDS 10:23
PROVIDERS: ATTEND Surgery
DX: K29.50 Unspecified chronic gastritis without bleeding (principal); K31.89 Other diseases of stomach and duodenum; K31.7 Polyp of stomach and duodenum; K44.9 Diaphragmatic hernia without obstruction or gangrene; K21.9 Gastro-esophageal reflux disease without esophagitis; G47.00 Insomnia, unspecified; I10 Essential (primary) hypertension; F41.9 Anxiety disorder, unspecified; E66.9 Obesity, unspecified; Z87.891 Personal history of nicotine dependence; Z98.890 Other specified postprocedural states; Z79.899 Other long term (current) drug therapy; Z91.048 Other nonmedicinal substance allergy status; Z79.01 Long term (current) use of anticoagulants
CPT/HCPCS: 43239; 45378; 81025; J2704; J7120

== ENCOUNTER 2023-12-02 06:46 | Day surgery (SDC) | payer BC ==
[2023-12-01 10:12] LABS: BASOPHILS ABSOLUTE AUTO 0.05 K/uL (0.00-0.20); BASOPHILS PERCENT AUTO 0.6 % (0.0-1.0); EOSINOPHILS ABSOLUTE AUTO 0.23 K/uL (0.00-0.45); EOSINOPHILS PERCENT AUTO 2.8 % (0.0-6.0); HEMATOCRIT 40.2 % (37.0-47.0); HEMOGLOBIN 13.5 g/dL (12.0-16.0); IMMATURE GRAN ABSOLUTE AUTO 0.04 K/uL (0.00-0.05); IMMATURE GRAN PERCENT AUTO 0.5 % (0.0-0.4); LYMPHOCYTES ABSOLUTE AUTO 3.07 K/uL (1.00-4.80); LYMPHOCYTES PERCENT AUTO 37.5 % (24.0-44.0); MEAN CORPUSCULAR HGB CONC 33.6 g/dL (32.0-36.0); MEAN CORPUSCULAR VOLUME 89.3 fL (83.0-99.0); MEAN PLATELET VOLUME 8.7 fL (9.4-12.3); MONOCYTES ABSOLUTE AUTO 0.74 K/uL (0.00-0.80); NEUTROPHILS ABSOLUTE AUTO 4.06 K/uL (1.80-7.70); NEUTROPHILS PERCENT AUTO 49.6 % (41.0-71.0); PLATELET COUNT,PLT 306 K/uL (150-400); WHITE BLOOD CELL COUNT,WBC 8.19 K/uL (3.9-11.3)
[2023-12-01 10:45] LABS: BLOOD UREA NITROGEN,BUN 11 mg/dL (7.0-18.0); CALCIUM 9.2 mg/dL (8.5-10.1); CARBON DIOXIDE,CO2 27.6 mmol/L (21.0-32.0); CHLORIDE,CL 102 mmol/L (98-107); CREATININE 0.8 mg/dL (0.6-1.0); EST CRCL DRUG DOSING (CG) 84.76 mL/min; GLUCOSE RANDOM 118 mg/dL (74-106); POTASSIUM,K 4.4 mmol/L (3.5-5.1); SODIUM,NA 139 mmol/L (136-145)
[2023-12-01 10:46] LABS: ESTIMATED GFR 98 mL/min (>60); HCG QUANTITATIVE < 1.0 mIU/mL
[2023-12-02] MEDS ORDERED: Glycopyrrolate 0.2 MG/ML SDV IVPUSH ONE (06:47)
[2023-12-02] MEDS: Scopalamine 1mg/3day Transdermal Patch TOP ONE (07:05)
[2023-12-02] MEDS ORDERED: Lidocaine 2% 5 ML SDV ONE (07:09)
[2023-12-02] MEDS ORDERED: fentaNYL 100 MCG/2 ML SDV ONE ×2 (07:10→09:50)
[2023-12-02] MEDS ORDERED: Rocuronium Bromide 50 MG/5 ML Syringe ONE ×2 (07:10→08:52)
[2023-12-02] MEDS ORDERED: Propofol 200 MG/20 ML SDV ONE (07:10)
[2023-12-02] MEDS ORDERED: dexmedeTOMIDine HCl 200 MCG/2 ML SDV ONE (07:13)
[2023-12-02] MEDS: Lactated Ringers 1,000 ML IV SCH (07:18)
[2023-12-02] MEDS ORDERED: Ropivacaine 0.5% 5 MG/ML 30 ML SDV ONE (07:20)
[2023-12-02] MEDS ORDERED: Bupivacaine 0.25% 30 ML SDV ONE ×2 (07:20→07:29)
[2023-12-02] MEDS ORDERED: Morphine 10 MG/ML SDV ONE (07:26)
[2023-12-02] MEDS ORDERED: Midazolam 1 MG/ML 2 ML SDV ONE (07:26)
[2023-12-02] MEDS ORDERED: Methylene Blue 100 MG/10 ML SDV ONE (07:29)
[2023-12-02] MEDS ORDERED: Naloxone 0.4 MG/ML SDV IVPUSH PRN (07:40)
[2023-12-02] MEDS ORDERED: fentaNYL 50 MCG/ML SDV IVPUSH PRN (07:40)
[2023-12-02] MEDS ORDERED: Albuterol 0.083% 2.5 MG/3 ML Neb Soln NEB PRN (07:40)
[2023-12-02] MEDS ORDERED: Ondansetron 4 MG/2 ML SDV IVPUSH PRN (07:40)
[2023-12-02] MEDS ORDERED: droPERidol 5 MG/2 ML SDV IVPUSH PRN (07:40)
[2023-12-02] MEDS ORDERED: Morphine 2 MG/ML SYRINGE IVPUSH PRN (07:40)
[2023-12-02] MEDS ORDERED: Metoclopramide 10 MG/2 ML SDV IVPUSH PRN (07:40)
[2023-12-02] MEDS ORDERED: ceFAZolin 2 GM Vial ONE (08:09)
[2023-12-02] MEDS ORDERED: Water For Injection, Sterile 20 ML ONE (08:09)
[2023-12-02] MEDS ORDERED: ePHEDrine 50 MG/ML SDV ONE (08:16)
[2023-12-02] MEDS ORDERED: Sugammadex Sodium 200 MG/2 ML VIAL IV ONE (08:41)
[2023-12-02] MEDS ORDERED: Ondansetron 4 MG/2 ML SDV ONE (08:41)
[2023-12-02] MEDS ORDERED: Dexamethasone 4 MG/ML 5 ML MDV ONE (09:01)
[2023-12-02] MEDS ORDERED: Furosemide 40 MG/4 ML VIAL ONE (09:22)
[2023-12-02] MEDS ORDERED: Fluorescein 5 ML Vial ONE (09:30)
[2023-12-02] MEDS ORDERED: Promethazine 25 MG/ML SDV IM PRN (10:20)
[2023-12-02] MEDS ORDERED: Morphine 4 MG/ML Syringe IVPUSH PRN (10:20)
[2023-12-02] MEDS: HYDROmorphone 1 MG/ML Syringe IVPUSH PRN (10:31)
[2023-12-02] MEDS: Ketorolac 30 MG/ML SDV IVPUSH ONE (11:17)
[2023-12-02] MEDS: Acetaminophen/oxyCODONE 325-5 MG Tab PO PRN (12:45)
[2023-12-02] MEDS ORDERED: HYDROmorphone 1 MG/ML Syringe IVPUSH PRN (14:08)
[2023-12-02] MEDS: HYDROmorphone 2 MG/ML Syringe IVPUSH PRN (15:09)
[2023-12-02] MEDS: Ketorolac 30 MG/ML SDV IVPUSH PRN (17:23)
[2023-12-02] MEDS: Enoxaparin 40 MG/0.4 ML Syringe SUBCUT ONE (20:01)
[2023-12-02] MEDS: Docusate Sodium 100 MG Cap PO SCH (20:03)
[2023-12-02] MEDS: Ondansetron 4 MG/2 ML SDV IVPUSH PRN (20:07)
[2023-12-03] MEDS: Acetaminophen/oxyCODONE 325-5 MG Tab PO PRN (02:16)
[2023-12-03 05:46] LABS: BASOPHILS ABSOLUTE AUTO 0.04 K/uL (0.00-0.20); BASOPHILS PERCENT AUTO 0.4 % (0.0-1.0); EOSINOPHILS ABSOLUTE AUTO 0.24 K/uL (0.00-0.45); EOSINOPHILS PERCENT AUTO 2.1 % (0.0-6.0); HEMOGLOBIN 12.2 g/dL (12.0-16.0); IMMATURE GRAN ABSOLUTE AUTO 0.04 K/uL (0.00-0.05); IMMATURE GRAN PERCENT AUTO 0.4 % (0.0-0.4); LYMPHOCYTES ABSOLUTE AUTO 3.97 K/uL (1.00-4.80); LYMPHOCYTES PERCENT AUTO 35.2 % (24.0-44.0); MEAN CORPUSCULAR HEMOGLOBIN 30.2 pg (28.0-32.0); MEAN CORPUSCULAR VOLUME 91.6 fL (83.0-99.0); MEAN PLATELET VOLUME 8.4 fL (9.4-12.3); MONOCYTES ABSOLUTE AUTO 1.03 K/uL (0.00-0.80); MONOCYTES PERCENT AUTO 9.1 % (0.0-8.0); NEUTROPHILS ABSOLUTE AUTO 5.96 K/uL (1.80-7.70); NEUTROPHILS PERCENT AUTO 52.8 % (41.0-71.0); PLATELET COUNT,PLT 270 K/uL (150-400); RED BLOOD CELL COUNT 4.04 M/uL (4.10-5.30); WHITE BLOOD CELL COUNT,WBC 11.28 K/uL (3.9-11.3)
[2023-12-03 06:01] LABS: CALCIUM 8.6 mg/dL (8.5-10.1); CARBON DIOXIDE,CO2 30.1 mmol/L (21.0-32.0); CREATININE 0.9 mg/dL (0.6-1.0); EST CRCL DRUG DOSING (CG) 75.34 mL/min; POTASSIUM,K 3.9 mmol/L (3.5-5.1)
[2023-12-03 11:03] VITALS: BP 117/76; PULSE 73
== END 2023-12-03 11:45 | disposition home or self-care (01) ==
LOC: MW.SDS 06:46 → MW.OB 12:39 → MW.SDS 12-03 11:45
PROVIDERS: ATTEND Obstetrics & Gynecology
DX: N80.03 Adenomyosis of the uterus (principal); N83.8 Other noninflammatory disorders of ovary, fallopian tube and broad ligament; D68.61 Antiphospholipid syndrome; I10 Essential (primary) hypertension; K21.9 Gastro-esophageal reflux disease without esophagitis; F32.A Depression, unspecified; F41.9 Anxiety disorder, unspecified; Z79.899 Other long term (current) drug therapy
CPT/HCPCS: 36415; 58552; 80048; 84702; 85025; 86850; 86900; 86901; A9270; J0665; J0690; J1170; J1650; J1885; J1940; J2250; J2270; J2405; J2704; J2795; J3010; J3490; J7120; Q9968; 00944; 64488; J1100

== ENCOUNTER 2025-03-01 15:15 | Emergency (ER) | payer BC ==
[2025-03-01 15:29] LABS: BASOPHILS ABSOLUTE AUTO 0.05 K/uL (0.00-0.20); BASOPHILS PERCENT AUTO 0.5 % (0.0-1.0); EOSINOPHILS ABSOLUTE AUTO 0.08 K/uL (0.00-0.45); EOSINOPHILS PERCENT AUTO 0.7 % (0.0-6.0); IMMATURE GRAN ABSOLUTE AUTO 0.04 K/uL (0.00-0.05); IMMATURE GRAN PERCENT AUTO 0.4 % (0.0-0.4); LYMPHOCYTES ABSOLUTE AUTO 4.62 K/uL (1.00-4.80); LYMPHOCYTES PERCENT AUTO 43.0 % (24.0-44.0); MEAN PLATELET VOLUME 9.0 fL (9.4-12.3); MONOCYTES ABSOLUTE AUTO 0.90 K/uL (0.00-0.80); MONOCYTES PERCENT AUTO 8.4 % (0.0-8.0); NEUTROPHILS ABSOLUTE AUTO 5.05 K/uL (1.80-7.70); NEUTROPHILS PERCENT AUTO 47.0 % (41.0-71.0); NRBC ABSOLUTE 0.00 K/uL (0.00-0.02); NRBC PERCENT 0.0 /100WBC (0.0-0.2); PLATELET COUNT,PLT 303 K/uL (150-400); RED BLOOD CELL COUNT 4.66 M/uL (4.10-5.30); WHITE BLOOD CELL COUNT,WBC 10.74 K/uL (3.9-11.3)
[2025-03-01] MEDS: Iopamidol 755 MG/ML 500 ML Multipack Bottle IVPUSH STA (15:36)
[2025-03-01 16:01] LABS: APPEARANCE,URINE CLEAR; GLUCOSE,URINE NEGATIVE (NEGATIVE); OCCULT BLOOD,URINE NEGATIVE (NEGATIVE)
[2025-03-01 16:23] LABS: INR 1.08 (0.86-1.11); PTT,PARTIAL THROMBOPLSTIN TIME 31.1 SEC (23.9-30.7)
[2025-03-01 16:31] LABS: A/G RATIO 1.1 (0.9-1.6); ALANINE AMINOTRANSFERASE,ALT 27 IU/L (14-63); ASPARTATE AMNIOTRANSFERASE,AST 14 IU/L (15-37); BILIRUBIN TOTAL 0.7 mg/dL (0.2-1.0); BLOOD UREA NITROGEN,BUN 11 mg/dL (7.0-18.0); CARBON DIOXIDE,CO2 26.2 mmol/L (21.0-32.0); CHLORIDE,CL 99 mmol/L (98-107); CREATININE 0.9 mg/dL (0.6-1.0); EST CRCL DRUG DOSING (CG) 71.48 mL/min; GLUCOSE RANDOM 73 mg/dL (74-106); POTASSIUM,K 3.5 mmol/L (3.5-5.1); PROTEIN TOTAL,TP 7.2 g/dL (6.4-8.2); SODIUM,NA 134 mmol/L (136-145)
[2025-03-01 16:34] LABS: ESTIMATED GFR 85 mL/min (>60)
[2025-03-01 18:21] VITALS: BP 129/81; PULSE 77
== END 2025-03-01 18:21 | disposition home or self-care (01) ==
LOC: MW.ED 15:15
DX: R47.9 Unspecified speech disturbances (principal); I10 Essential (primary) hypertension; K21.9 Gastro-esophageal reflux disease without esophagitis; Z79.899 Other long term (current) drug therapy; Z88.8 Allergy status to other drugs, medicaments and biological substances
CPT/HCPCS: 36415; 70450; 70496; 70498; 70551; 71045; 80053; 81003; 81025; 82947; 84484; 85025; 85610; 85730; 93005; 99285; Q9967; 93010; 99284